=== PATIENT | male | born 1955 | race Caucasian/White ===

== ENCOUNTER → 2017-05-11 11:30 | Outpatient (CLI) | payer OTHER, SELFPAY ==
[2017-05-11 14:46] LABS: Albumin, Serum 4.4 g/dL (3.2-5.0); BUN 18 mg/dL (7-18); BUN/Creat Ratio 13.6 RATIO (10-20); Calcium,Total 9.2 mg/dL (8.5-10.1); Chloride 103 mmol/L (98-107); Creatinine, Serum 1.32 mg/dL (0.70-1.30); EST Glomerular Filtration Rate 59 mL/min (>60); Est Glom Filt Rate - Afr Amer 71 mL/min (>60); Glucose 105 mg/dL (70-110); Magnesium 2.3 mg/dL (1.6-2.6); Phosphorus 3.3 mg/dL (2.5-4.9); Potassium 4.7 mmol/L (3.5-5.1); Sodium Level 141 mmol/L (136-145)
== END ==
PROVIDERS: Family Provider Internal Medicine; PCP Internal Medicine; Visit Provider Internal Medicine Nephrology
DX: I10 Essential (primary) hypertension (principal)
CPT/HCPCS: 36415; 80069; 83735

== ENCOUNTER → 2017-05-12 11:05 | Outpatient (CLI) | payer OTHER, SELFPAY | PROVIDERS: Family Provider Internal Medicine; PCP Internal Medicine; Visit Provider Internal Medicine Nephrology | DX: I10 Essential (primary) hypertension (principal) | CPT/HCPCS: 36415 ==

== ENCOUNTER → 2017-05-29 15:25 | Outpatient (CLI) | payer OTHER, SELFPAY ==
[2017-05-29 17:44] LABS: Hematocrit 46.4 % (40-54); Hemoglobin 15.7 g/dl (13.0-16.5); Mean Corp Hgb Conc 33.8 g/gl (32-36); Mean Corpuscular Hgb 29.5 pg (27.0-32.0); Mean Corpuscular Volume 87.2 fL (80-94); Mean Platelet Vol. 11.8 fl (6.2-12.0); Platelet Count 201 K/mm3 (150-450); RBC Distribution Width CV 13.8 % (11.6-14.6); RBC Distribution Width SD 43.5 fl (35.1-43.9); Red Blood Count 5.32 M/mm3 (4.6-6.2); Scan Indicated on CBC? Y/N NO; White Blood Count 6.4 K/mm3 (4.4-11.0)
[2017-05-29 18:11] LABS: Albumin, Serum 4.3 g/dL (3.2-5.0); BUN 27 mg/dL (7-18); Chloride 103 mmol/L (98-107); EST Glomerular Filtration Rate 51 mL/min (>60); Est Glom Filt Rate - Afr Amer 61 mL/min (>60); Glucose 129 mg/dL (74-106); Magnesium 2.2 mg/dL (1.6-2.6); Phosphorus 3.7 mg/dL (2.5-4.9); Potassium 3.9 mmol/L (3.5-5.1); Sodium Level 140 mmol/L (136-145)
[2017-05-29 18:32] LABS: Microalbumin,Random Urine 53.5 mg/L (NO RANGE EST.); Microalbumin:Creatinine Ratio 22.2 mg/g CRE (<30 mg/g CRE)
== END ==
PROVIDERS: Family Provider Internal Medicine; PCP Internal Medicine; Visit Provider Internal Medicine Nephrology
DX: I10 Essential (primary) hypertension (principal)
CPT/HCPCS: 36415; 80069; 82043; 82570; 83735; 85027

== ENCOUNTER → 2017-06-01 10:50 | Outpatient (CLI) | payer OTHER, SELFPAY ==
--- NOTE | 2017-06-01 10:52 | US_ITS ---
US Kidney(s) complete (eg, kidneys T bladder) INDICATION: NEPHROLITHIASISHX OF RECENT HIGH BLOOD PRESSURE COMPARISON: None TECHNIQUE: Ultrasonographic grayscale and limited Doppler investigation of the retroperitoneum including kidneys and urinary bladder. FINDINGS: The right kidney measures 11.1 x 5.3 x 5.2 cm with a cortical thickness of 1.5 cm. There is no evidence of hydronephrosis or cyst. A 2 mm calculus is noted in the midpole region. The left kidney measures 11.6 x 5 x 5.4 cm with a cortical thickness of 1.3 cm. There is mild prominence of the left renal pelvis and multiple left renal calculi are seen measuring between 2 and 7 mm. The urinary bladder is unremarkable, contains 213 mL at the time of that scan, and 30 mL postvoid. The wall thickness measures 3 mm. Bilateral ureteral jets are visualized. The prostate gland appears heterogenous and enlarged, measuring 5.7 x 5.5 x 3.8 cm. US/Kidney and Bladder IMPRESSION: Bilateral nephrolithiasis. Left renal pelviectasis. Prostatomegaly. at 1731 Reported and signed by: Kristi Moya MD Electronically Signed: Kristi Moya MD at 16:29 EST Tel , Service support ,
== END ==
PROVIDERS: Family Provider Internal Medicine; PCP Internal Medicine; Visit Provider Internal Medicine Nephrology
DX: N20.0 Calculus of kidney (principal)
CPT/HCPCS: 76770

== ENCOUNTER → 2017-06-15 11:40 | Outpatient (CLI) | payer OTHER, SELFPAY ==
[2017-06-15 14:19] LABS: Albumin, Serum 4.3 g/dL (3.2-5.0); BUN 18 mg/dL (7-18); BUN/Creat Ratio 14.1 RATIO (10-20); Calcium,Total 9.2 mg/dL (8.5-10.1); Chloride 102 mmol/L (98-107); Creatinine, Serum 1.28 mg/dL (0.70-1.30); EST Glomerular Filtration Rate 61 mL/min (>60); Est Glom Filt Rate - Afr Amer 73 mL/min (>60); Free T3 2.9 pg/mL (2.18-3.98); Glucose 96 mg/dL (74-106); Magnesium 2.5 mg/dL (1.6-2.6); Potassium 4.4 mmol/L (3.5-5.1); Sodium Level 141 mmol/L (136-145); T4 Free Direct 0.96 ng/dL (0.76-1.46)
== END ==
PROVIDERS: Family Provider Internal Medicine; PCP Internal Medicine; Visit Provider Internal Medicine
DX: I10 Essential (primary) hypertension (principal); R94.6 Abnormal results of thyroid function studies
CPT/HCPCS: 36415; 80069; 83735; 84439; 84481

== ENCOUNTER 2017-08-25 21:27 | Emergency (ER) | payer OTHER, SELFPAY ==
[2017-08-25 21:28] VITALS: BP 155/89; PULSE 76; RESP 14; TEMP 36.5; O2SAT 94; BMI 29.7
--- NOTE | 2017-08-25 21:40 | RAD_ITS ---
STUDY: X-RAY CHEST REASON FOR EXAM: Male, 61 years old. Chest pain TECHNIQUE: Single frontal view COMPARISON: August 03, 2016 FINDINGS: The lungs are not fully expanded. There is no demonstrated pleural abnormality. Normal size heart. Normal mediastinum and silvina. Normal visualized pulmonary arteries. Normal visualized aortic arch and descending thoracic aorta. Normal visualized thoracic spine. Old fracture of the left fourth rib. There is no demonstrated abnormality of the visualized soft tissue structures of the upper abdomen. RAD/Chest 1 View (Portable) IMPRESSION: No acute pulmonary pathology of the chest. Electronically Signed: Red Rodriguez DO at 21:58 EDT Tel [phone], Service support ,
--- NOTE | 2017-08-25 21:40 | EKG12_ITS ---
Test Reason : CHEST PAIN Blood Pressure : / mmHG Vent. Rate : 068 BPM Atrial Rate : 068 BPM P-R Int : 194 ms QRS Dur : 124 ms QT Int : 412 ms P-R-T Axes : 034 -76 006 degrees QTc Int : 438 ms Normal sinus rhythm Left axis deviation Abnormal ECG Confirmed by PRERNA BRYAN, HUDSON ([id number]), newspaper or periodical editor NERISSA LOCKHART ([id number]) on 08/28/2017 2:04:22 PM Referred By: JAY Confirmed By:HUDSON GRAFF MD
--- NOTE | 2017-08-25 21:40 | CT_ITS ---
STUDY: CT ABDOMEN AND PELVIS WITHOUT CONTRAST REASON FOR EXAM: Male, 61 years old. Groin pain RADIATION DOSAGE (If Supplied By Facility): CTDIvol = ( 13.16 ) mGy, DLP = ( 776.28 ) mGycm TECHNIQUE: Transaxial images were obtained from the dome of the diaphragm to the symphysis pubis without oral contrast, and without intravenous contrast. Sagittal and coronal images were reconstructed. Individualized dose optimization techniques were used for this CT. COMPARISON: April 21, 2008. FINDINGS: The visualized lung bases are unremarkable. The visualized portions of the heart are within normal limits. Normal liver. Normal gallbladder and extrahepatic biliary system. Normal spleen. Normal pancreas. Normal bilateral adrenal glands. Normal right kidney. There are 2-3 nonobstructive stones up to 8 mm in the left kidney. Normal visualized stomach. Normal small intestine. Mild diverticulosis of the colon. The appendix is visualized and appears normal. Normal abdominal aorta. Normal inferior vena cava. Normal retroperitoneum. Normal urinary bladder. Fatty density at the inguinal canals. The prostate is 4.4 x 5.5 cm Normal abdominal wall. Mild degenerative vertebral changes. Grade 1 spondylolisthesis at L5-S1 with spondylolysis of L5. CT/Abdomen/Pelvis without Cont IMPRESSION: Nonobstructive left renal stones. Fatty density at the inguinal canals. Electronically Signed: Red Rodriguez DO at 22:18 EDT Tel [phone], Service support ,
[2017-08-25 21:46] VITALS: O2SAT 98
--- NOTE | 2017-08-25 21:49 | ED.VISSUMM ---
- ER Visit Summary Date of Service: 08/25/17 Chief Complaint: Chest pain History of Present Illness: The patient is a 61 M patient has had intermittent chest pain for weeks. Retrosternal and feels like it hurts. His pain has been constant today for 6 or 8 hours. He is taking Tums and reflux medication and it is not helping. It is associated with some shortness of breath. He denies any history of coronary disease. He has had a history of a flutter and had an ablation. He subsequently developed intermittent atrial fibrillation. He is on flecainide and Xarelto. He had a cardiac catheterization just over a year ago that was unremarkable except for a kink in the RCA. He has a family history of coronary disease. His father had an [place] at 65. Patient was also complaining of left flank pain and lower abdominal pain. He said he has a history of kidney stones and was concerned that he may be passing a stone. Physical Examination: Afebrile and vital signs unremarkable. Heart regular. Lungs clear. Abdomen tender in the left lower abdomen. No guarding or rebound. Extremities unremarkable. No edema. Good pulses. Soft and supple. Test Results: EKG showed sinus rhythm at a rate of 68. Laboratory studies, chest x-ray, urinalysis, and CT flank are pending. Emergency Department Course and Treatment: He was treated with aspirin while awaiting results. He was placed on a monitor. CBC unremarkable. BUN 22 and creatinine 1.31, stable. Urinalysis unremarkable. Troponin normal. Chest x-ray showed no acute abnormalities. CT flank showed nonobstructive left renal stones. Nothing to explain his flank pain. Patient had a cardiac catheterization just over a year ago. He does have some family history of coronary disease. His symptoms are atypical and may be related to acid reflux. I advised him that I cannot rule out a cardiac cause to his chest pain. The patient would like to be discharged and he would like to follow-up with Dr. Rivero. I attempted to call Dr. Rivero but he was not information technology officer. The patient said he would call tomorrow. He said that he understands we have not completely ruled out cardiac causes. He does not want to be admitted. On reevaluation, the patient looks objectively comfortable. His heart is in sinus rhythm. Vitals are normal. No new or changing symptoms. He will be discharged to follow-up as an outpatient. He should return at any time if he has new or worsening symptoms. Treatment Plan: As above Disposition: Discharged Impression: 1. Chest pain 2. Left flank pain This note was generated with [employer] dictation software. It may contain incorrect words, spelling, and punctuation that were not noted in review of the chart prior to signing ED Disposition - Plan for ED Patient: Chief Complaint: Chest Pain Referrals: Ameena Renee DO [Primary Care Provider] -
--- NOTE | 2017-08-25 21:52 | ED.DCSUM_ITS ---
- ER Visit Summary Date of Service: 08/25/17 Chief Complaint: Chest pain History of Present Illness: The patient is a 61 M patient has had intermittent chest pain for weeks. Retrosternal and feels like it hurts. His pain has been constant today for 6 or 8 hours. He is taking Tums and reflux medication and it is not helping. It is associated with some shortness of breath. He denies any history of coronary disease. He has had a history of a flutter and had an ablation. He subsequently developed intermittent atrial fibrillation. He is on flecainide and Xarelto. He had a cardiac catheterization just over a year ago that was unremarkable except for a kink in the RCA. He has a family history of coronary disease. His father had an [place] at 65. Patient was also complaining of left flank pain and lower abdominal pain. He said he has a history of kidney stones and was concerned that he may be passing a stone. Physical Examination: Afebrile and vital signs unremarkable. Heart regular. Lungs clear. Abdomen tender in the left lower abdomen. No guarding or rebound. Extremities unremarkable. No edema. Good pulses. Soft and supple. Test Results: EKG showed sinus rhythm at a rate of 68. Laboratory studies, chest x-ray, urinalysis, and CT flank are pending. Emergency Department Course and Treatment: He was treated with aspirin while awaiting results. He was placed on a monitor. CBC unremarkable. BUN 22 and creatinine 1.31, stable. Urinalysis unremarkable. Troponin normal. Chest x-ray showed no acute abnormalities. CT flank showed nonobstructive left renal stones. Nothing to explain his flank pain. Patient had a cardiac catheterization just over a year ago. He does have some family history of coronary disease. His symptoms are atypical and may be related to acid reflux. I advised him that I cannot rule out a cardiac cause to his chest pain. The patient would like to be discharged and he would like to follow-up with Dr. Rivero. I attempted to call Dr. Rivero but he was not technology applications engineer. The patient said he would call tomorrow. He said that he understands we have not completely ruled out cardiac causes. He does not want to be admitted. On reevaluation, the patient looks objectively comfortable. His heart is in sinus rhythm. Vitals are normal. No new or changing symptoms. He will be discharged to follow-up as an outpatient. He should return at any time if he has new or worsening symptoms. Treatment Plan: As above Disposition: Discharged Impression: 1. Chest pain 2. Left flank pain This note was generated with [employer] dictation software. It may contain incorrect words, spelling, and punctuation that were not noted in review of the chart prior to signing ED Disposition - Plan for ED Patient: Chief Complaint: Chest Pain Referrals: Ameena Renee DO [Primary Care Provider] -
[2017-08-25] MEDS: Aspirin 81 MG TAB.CHEW 324 MG PO (21:56)
[2017-08-25 22:04] LABS: Absolute Lymphocyte Count 0.71 X10^3/ul (0.83-4.51); Basophil# 0.02 X10^3/uL; Basophil% 0.4 % (0-1); Eosinophil# 0.04 X10^3/uL; Eosinophils% 0.8 % (0-5); Hematocrit 44.7 % (40-54); Hemoglobin 15.6 g/dl (13.0-16.5); Lymphocyte # 0.71 X10^3/ul (4.0); Lymphocyte % 13.4 % (19-41); Mean Corp Hgb Conc 34.9 g/gl (32-36); Mean Corpuscular Hgb 29.9 pg (27.0-32.0); Mean Corpuscular Volume 85.6 fL (80-94); Mean Platelet Vol. 11.9 fl (6.2-12.0); Monocyte# 0.55 X10^3/uL; Monocyte% 10.4 % (0-10); Neutrophil # 3.95 X10^3/uL (2.7-7.7); Neutrophil % 74.8 % (47-70); Platelet Count 152 K/mm3 (150-450); RBC Distribution Width CV 13.2 % (11.6-14.6); RBC Distribution Width SD 41.1 fl (35.1-43.9); Red Blood Count 5.22 M/mm3 (4.6-6.2); White Blood Count 5.3 K/mm3 (4.4-11.0)
[2017-08-25 22:06] LABS: POSITIVE COUNT NO; POSITIVE DIFFERENTIAL NO; POSITIVE MORPHOLOGY NO
[2017-08-25 22:16] LABS: Anion Gap 8 (5-15); BUN 22 mg/dL (7-18); BUN/Creat Ratio 16.8 RATIO (10-20); Calcium,Total 9.1 mg/dL (8.5-10.1); Chloride 105 mmol/L (98-107); Creatinine, Serum 1.31 mg/dL (0.70-1.30); EST Glomerular Filtration Rate 59 mL/min (>60); Est Glom Filt Rate - Afr Amer 71 mL/min (>60); Estimated Creatinine Clearance 66.92 ml/min; Glucose 101 mg/dL (74-106); Potassium 3.9 mmol/L (3.5-5.1); Sodium Level 139 mmol/L (136-145)
[2017-08-25 22:21] LABS: Bacteria 0 SEEN /hpf (None Seen); Mucous, Urine 0 SEEN /hpf (<or=2+); Red Blood Cells-Urine 0 SEEN /hpf (0-5); White Blood Cells 0 SEEN /hpf (0-5)
[2017-08-25 22:27] VITALS: BP 118/89; PULSE 59; RESP 17; O2SAT 93
[2017-08-25 22:31] LABS: Color, Urine Yellow (Yellow); Glucose, Dipstick Normal (Normal); Ketone-Dipstick Negative (Negative); Leukocyte Esterase-Dipstick Negative /ul (Negative); Nitrite-Dipstick Negative (Negative); Occult Blood-Urine Negative /ul (Negative); Protein-Dipstick Negative (Negative); Specific Gravity, Urine 1.015 (1.002-1.030); Urine Bilirubin Dipstick Negative (Negative); Urine Clarity Sl. Cloudy (Clear); Urine Urobilinogen Normal (Normal)
[2017-08-25 22:45] LABS: Squamous Epithelial Cells - UA 0-5 SEEN /hpf (0-5)
--- NOTE | 2017-08-25 23:23 | ED.DEP ---
ED Disposition - Plan for ED Patient: Chief Complaint: Chest Pain Instructions: ED Chest Pain Atypical Unkn Cause Referrals: Ameena Renee DO [Primary Care Provider] - Sathish Rivero MD [STAFF PHYSICIAN] -
[2017-08-25 23:47] VITALS: BP 117/80; PULSE 59; RESP 16; O2SAT 94
== END 2017-08-25 23:48 | disposition home or self-care (01) ==
LOC: ED 21:44
PROVIDERS: Emergency Provider Emergency Medicine; Family Provider Internal Medicine; PCP Internal Medicine
DX: R07.89 Other chest pain (principal); I48.91 Unspecified atrial fibrillation; R06.02 Shortness of breath; Z87.442 Personal history of urinary calculi; Z82.49 Family history of ischemic heart disease and other diseases of the circulatory system; K21.9 Gastro-esophageal reflux disease without esophagitis; R10.9 Unspecified abdominal pain; Z79.899 Other long term (current) drug therapy; Z79.01 Long term (current) use of anticoagulants
CPT/HCPCS: 71045; 74176; 80048; 81001; 84484; 85025; 93005; 99284; A4216

== ENCOUNTER → 2017-09-04 11:23 | Outpatient (CLI) | payer OTHER, SELFPAY ==
[2017-09-04 12:36] LABS: Absolute Lymphocyte Count 0.95 X10^3/ul (0.83-4.51); Absolute Neutrophil Count 4.2 X10^3/uL (2.0-7.7); Basophil# 0.03 X10^3/uL; Basophil% 0.5 % (0-1); Eosinophil# 0.09 X10^3/uL; Eosinophils% 1.6 % (0-5); Hematocrit 44.2 % (40-54); Hemoglobin 14.7 g/dl (13.0-16.5); Lymphocyte # 0.95 X10^3/ul (4.0); Lymphocyte % 16.6 % (19-41); Mean Corp Hgb Conc 33.3 g/gl (32-36); Mean Corpuscular Hgb 28.7 pg (27.0-32.0); Mean Corpuscular Volume 86.2 fL (80-94); Mean Platelet Vol. 11.6 fl (6.2-12.0); Monocyte% 8.7 % (0-10); Neutrophil # 4.16 X10^3/uL (2.7-7.7); Neutrophil % 72.4 % (47-70); Platelet Count 206 K/mm3 (150-450); RBC Distribution Width CV 13.4 % (11.6-14.6); RBC Distribution Width SD 41.9 fl (35.1-43.9); Red Blood Count 5.13 M/mm3 (4.6-6.2); White Blood Count 5.7 K/mm3 (4.4-11.0)
[2017-09-04 12:41] LABS: POSITIVE COUNT NO; POSITIVE DIFFERENTIAL NO; POSITIVE MORPHOLOGY NO
[2017-09-04 12:57] LABS: PTHIN 52.6 pg/mL (18.4-80.1)
[2017-09-04 13:00] LABS: Albumin, Serum 4.1 g/dL (3.2-5.0); BUN 20 mg/dL (7-18); BUN/Creat Ratio 17.2 RATIO (10-20); Calcium,Total 9.2 mg/dL (8.5-10.1); Chloride 103 mmol/L (98-107); Creatinine, Serum 1.16 mg/dL (0.70-1.30); EST Glomerular Filtration Rate 68 mL/min (>60); Est Glom Filt Rate - Afr Amer 82 mL/min (>60); Glucose 93 mg/dL (74-106); Magnesium 2.4 mg/dL (1.6-2.6); Phosphorus 3.2 mg/dL (2.5-4.9); Potassium 4.1 mmol/L (3.5-5.1); Sodium Level 139 mmol/L (136-145)
[2017-09-04 13:03] LABS: Protein, Urine (Random) < 6.0 mg/dL (<11.9)
[2017-09-08 11:20] LABS: Vitamin D 1,25-Dihydroxy 26.7 pg/mL (19.9-79.3)
== END ==
PROVIDERS: Family Provider Internal Medicine; PCP Internal Medicine; Visit Provider Internal Medicine Nephrology
DX: I12.9 Hypertensive chronic kidney disease with stage 1 through stage 4 chronic kidney disease, or unspecified chronic kidney disease (principal); N18.3 Chronic kidney disease, stage 3 (moderate)
CPT/HCPCS: 36415; 80069; 82570; 82652; 83735; 83970; 84156; 85025

== ENCOUNTER → 2017-09-08 09:50 | Outpatient (CLI) | payer OTHER, SELFPAY ==
--- NOTE | 2017-09-08 09:52 | NM_ITS ---
CLINICAL: 61-year-old male with reported history of abdominal pain. RADIONUCLIDE HEPATOBILIARY SCINTIGRAPHY COMPARISON: Previous CCK hepatobiliary scintigraphy study report 09/07/2009 FINDINGS: Following the intravenous administration of 5.5 mCi of 99m Tc Mebrofenin, hepatobiliary images reveal: 1. Relatively prompt and homogeneous radiopharmaceutical concentration is noted by a normal sized liver. No parenchymal defects are identified. 2. Gallbladder activity is identified at 15 minutes post radiopharmaceutical administration. 3. Small intestinal tract is not visualized during 60 minutes of pre-CCK sequential imaging. Small bowel activity is identified following the administration of cholecystokinin. 4. Washout of the radiopharmaceutical by the hepatic parenchyma appears qualitatively normal. Cholecystokinin (0.02 ug/kg) was administered intravenously over a 30-minute period. The post CCK gallbladder ejection fraction calculated at 20 minutes following Cholecystokinin administration was noted to be 92.0 % (normal greater than 35%). There is scintigraphic evidence of post CCK transient duodenal gastric reflux. WI/Hepatobilliary Img w/Pharm Int IMPRESSION: 1. A gallbladder ejection fraction calculated to be greater than 35% following the administration of Cholecystokinin makes the probability of functional hepatobiliary disease (gallbladder and/or sphincter of Oddi dyskinesia) and/or organic hepatobiliary disease (chronic acalculous cholecystitis and/or cystic duct syndrome) to be low. (Dayanna Michelle et al, Journal of Nuclear Medicine 32:1695, 1990). 2. There is scintigraphic evidence of post CCK transient duodenal-gastric reflux. (Rusty et al, Nucl Med Radha Colleen Press pg. 35, 1980). Electronically Signed: Luis Munson DO at 22:48 EDT Tel , Service support ,
== END ==
PROVIDERS: Family Provider Internal Medicine; PCP Internal Medicine; Visit Provider Internal Medicine
DX: R07.89 Other chest pain (principal)
CPT/HCPCS: 78227; A9537; J2805

== ENCOUNTER → 2018-04-16 10:48 | Outpatient (CLI) | payer OTHER, SELFPAY ==
[2018-04-16 12:49] LABS: Albumin, Serum 4.4 g/dL (3.2-5.0); BUN 25 mg/dL (7-18); BUN/Creat Ratio 19.4 RATIO (10-20); Calcium,Total 9.4 mg/dL (8.5-10.1); Chloride 102 mmol/L (98-107); Creatinine, Serum 1.29 mg/dL (0.70-1.30); EST Glomerular Filtration Rate 60 mL/min (>60); Est Glom Filt Rate - Afr Amer 73 mL/min (>60); Glucose 98 mg/dL (74-106); Magnesium 2.2 mg/dL (1.6-2.6); Phosphorus 3.5 mg/dL (2.5-4.9); Potassium 4.2 mmol/L (3.5-5.1); Sodium Level 139 mmol/L (136-145)
== END ==
PROVIDERS: Family Provider Internal Medicine; PCP Internal Medicine; Referring Provider Internal Medicine Nephrology; Visit Provider Internal Medicine Nephrology
DX: I10 Essential (primary) hypertension (principal)
CPT/HCPCS: 36415; 80069; 83735

== ENCOUNTER → 2018-06-28 13:22 | Outpatient (CLI) | payer OTHER, SELFPAY ==
--- NOTE | 2018-06-28 13:28 | RAD_ITS ---
STUDY: X-RAY - CERVICAL SPINE REASON FOR EXAM: Male, 62 years old. Headaches x 1 year. TECHNIQUE: 4 view(s) of the cervical spine were obtained. COMPARISON: None FINDINGS: There are degenerative changes of the anterior atlantoaxial articulation. Normal odontoid process. Normal cervical lordosis. Normal vertebral bodies and endplates. There is mild narrowing of the C3-4 intervertebral disc space, otherwise normal disc space heights. There are multilevel degenerative changes of the cervical facet articulations. The soft tissue structures are unremarkable. There is no demonstrated osseous destructive process or acute fracture of the cervical spine. RAD/Cerv Spine 2 or 3 Views IMPRESSION: Multilevel degenerative changes of the cervical facet articulations as well as mild degenerative disc space narrowing at C3-4. Electronically Signed: Live Duran MD at 19:23 EDT , Service support ,
== END ==
PROVIDERS: Family Provider Internal Medicine; PCP Internal Medicine; Visit Provider Internal Medicine
DX: R51 Headache (principal)
CPT/HCPCS: 72040

== ENCOUNTER → 2018-07-09 10:04 | Outpatient (CLI) | payer OTHER, SELFPAY ==
--- NOTE | 2018-07-09 10:45 | MRI_ITS ---
STUDY: MRI BRAIN WITHOUT CONTRAST REASON FOR EXAM: Male, 62 years old. Acute intractable headache. TECHNIQUE: Standardized multiplanar fat and water weighted pulse sequences were obtained. COMPARISON: None. FINDINGS: Normal size of the ventricles and extra-axial spaces for the patient's age. Normal white matter tracts of the supratentorial brain. There is no evidence for recent intracranial ischemia or other cause of cytotoxic edema on diffusion weighted imaging (DWI). Normal T2* images of the brain without demonstrated susceptibility artifact. There is no demonstrated hemosiderin stain. Normal bilateral basal ganglia. Normal thalami. There is no extra-axial fluid accumulation. Normal flow voids within the major intracranial circulation suggesting patency by spin echo criteria. Normal sella turcica, pituitary gland, infundibular stalk, optic chiasm and hypothalamus. Normal tectal plate and pineal gland. Normal midbrain, aviva and medulla. Normal cerebellum. Normal basal cisterns. Normal bilateral temporal bones. Normal bilateral internal auditory canals. No demonstrated orbital abnormality, within the constraints of a routine brain study. Normal visualized paranasal sinuses. There is a right posterior parietal oval calvarial lesion T2 dark measuring 2.2 x 1.6 cm with overall benign appearance with similar appearance compared to 2017. Normal visualized soft tissue structures. Normal visualized upper cervical spine. MRI/Brain without Contrast IMPRESSION: No evidence of acute intracranial bleed, mass or ischemia. Electronically Signed: Aries Cool DO at 16:52 EDT , Service support ,
== END ==
PROVIDERS: Family Provider Internal Medicine; PCP Internal Medicine; Referring Provider Internal Medicine; Visit Provider Internal Medicine
DX: R51 Headache (principal)
CPT/HCPCS: 70551

== ENCOUNTER → 2018-11-12 12:44 | Outpatient (CLI) | payer OTHER, SELFPAY ==
[2018-11-12 13:47] LABS: Hematocrit 45.6 % (40-54); Mean Corp Hgb Conc 32.9 g/dL (32-36); Mean Corpuscular Volume 88.2 fL (80-94); Mean Platelet Vol. 11.8 fl (6.2-12.0); Platelet Count 171 K/mm3 (150-450); RBC Distribution Width CV 13.6 % (11.6-14.6); Red Blood Count 5.17 M/mm3 (4.6-6.2); White Blood Count 6.7 K/mm3 (4.4-11.0)
[2018-11-12 14:03] LABS: BUN 31 mg/dL (7-18); Creatinine, Serum 1.61 mg/dL (0.70-1.30); EST Glomerular Filtration Rate 46 mL/min (>60); Glucose 96 mg/dL (74-106)
[2018-11-12 14:04] LABS: Albumin, Serum 4.2 g/dL (3.2-5.0); BUN/Creat Ratio 19.3 RATIO (10-20); Calcium,Total 9.3 mg/dL (8.5-10.1); Chloride 106 mmol/L (98-107); Est Glom Filt Rate - Afr Amer 56 mL/min (>60); Magnesium 2.2 mg/dL (1.6-2.6); Sodium Level 140 mmol/L (136-145)
[2018-11-12 14:10] LABS: Microalbumin,Random Urine 7.4 mg/L (NO RANGE EST.); Microalbumin:Creatinine Ratio 3.7 mg/g CRE (<30 mg/g CRE)
[2018-11-12 14:12] LABS: Vitamin D,25 Hydroxy 26.3 ng/mL (29.95-100.01)
== END ==
PROVIDERS: Family Provider Internal Medicine; PCP Internal Medicine; Referring Provider Internal Medicine Nephrology; Visit Provider Internal Medicine Nephrology
DX: I12.9 Hypertensive chronic kidney disease with stage 1 through stage 4 chronic kidney disease, or unspecified chronic kidney disease (principal); N18.3 Chronic kidney disease, stage 3 (moderate)
CPT/HCPCS: 36415; 80069; 82043; 82306; 82570; 83735; 85027

== ENCOUNTER 2019-04-04 11:17 | Emergency (ER) | payer OTHER, SELFPAY ==
[2019-04-04 11:18] VITALS: BP 154/85; PULSE 59; RESP 18; TEMP 36.4; O2SAT 98; BMI 28.6
--- NOTE | 2019-04-04 11:59 | RAD_ITS ---
STUDY: X-RAY - LUMBAR SPINE REASON FOR EXAM: Male, 63 years old. Low back pain radiating into pelvis and hips 2 weeks. TECHNIQUE: 3 view(s) of the lumbar spine were obtained. COMPARISON: None FINDINGS: Mild generalized osteopenia. Normal lumbar lordosis. There is no substantial scoliosis. Bilateral pars defects at L5-S1 with a grade 1 spondylolisthesis of L5 on S1. Normal vertebral bodies and endplates. Intervertebral disc space narrowing at L5-S1 with vacuum phenomenon. Mild intervertebral disc space narrowing with osteophyte formation in the lower thoracic and upper lumbar spine. Diffuse facet sclerosis. The soft tissue structures are unremarkable. RAD/Lumbar Spine 2 or 3 Views IMPRESSION: Osteopenia with lumbar spondylosis as described, most marked at L5-S1, with a spondylolysis at this level and a grade 1 spondylolisthesis at this level. Electronically Signed: Te Simmons MD at 12:21 EST , Service support ,
--- NOTE | 2019-04-04 11:59 | ED.VISSUMM ---
- ER Visit Summary Date of Service: 04/04/19 Chief Complaint: Low back pain History of Present Illness: The patient is a 63 M past medical history of hypertension kidney stones. Intermittent A. fib with cardiac ablation. Patient states he fell down several steps landing on his knees about a month ago. He was fine at that time. The last 2 weeks he has developed low back pain. Times radiating to both sides of his buttocks. Denies any recent falls or trauma. No fever. No prior back history. No back surgery. Denies any bowel or bladder incontinence. Denies any leg weakness or numbness. Not specifically associated with exertion. Worse with standing or movement. Physical Examination: Older male no acute distress vital signs stable afebrile. H EENT exam unremarkable. Neck nontender. Lungs clear to auscultation. Heart regular rhythm rate about 60 no murmur. S1 nontender. Abdomen soft nontender. Normal bowel sounds no peritoneal signs. No pulsatile mass. Patient moving all 4 extremities. Neurovascular intact. Normal medial thigh sensation. Normal dorsi plantar flexion. Negative straight leg raise bilaterally. Normal range of motion and strength and sensation both upper and lower extremities. Back mild tenderness of the LS spine diffusely. No redness or warmth. No bruising or signs of trauma. Neurologically is awake and alert with no focal motor or sensory deficits. Test Results: LS spine x-rays read by myself L5-S1 spondylosis. With osteopenia and joint space narrowing. No acute fracture. Read both myself and the radiologist. I did go over the films with the patient and his family. Emergency Department Course and Treatment: Patient has negative straight leg raise. Both lower extremities neurovascular intact. There is no signs of cauda equina. Plain x-rays will be obtained. Treatment Plan: Motrin and Tylenol for pain. Follow-up with primary care physician for MRI of his low back. Disposition: Discharge Impression: Low back pain Spondylosis of L5-S1 This note was generated with [employer] dictation software. It may contain incorrect words, spelling, and punctuation that were not noted in review of the chart prior to signing ED Disposition - Plan for ED Patient: Referrals: Ameena Renee, [Primary Care Provider] -
--- NOTE | 2019-04-04 13:17 | ED.DEP ---
ED Disposition - Plan for ED Patient: Disposition: Home or Assisted Living Instructions: BACK PAIN (Acute or Chronic) Referrals: Ameena Renee, [Primary Care Provider] - As soon as possible Additional Instructions: Follow-up with your doctor within the next week. You will need an MRI of your low back. Tylenol and Motrin for pain.
== END 2019-04-04 13:26 | disposition home or self-care (01) ==
PROVIDERS: Emergency Provider Emergency Medicine; Family Provider Internal Medicine; PCP Internal Medicine
DX: M47.817 Spondylosis without myelopathy or radiculopathy, lumbosacral region (principal); I10 Essential (primary) hypertension; I48.91 Unspecified atrial fibrillation; Z87.442 Personal history of urinary calculi; Z79.02 Long term (current) use of antithrombotics/antiplatelets; Z79.899 Other long term (current) drug therapy
CPT/HCPCS: 72100; 99282

== ENCOUNTER → 2019-04-15 15:00 | Outpatient (CLI) | payer OTHER, SELFPAY ==
[2019-04-04 11:18] VITALS: BMI 28.6
[2019-04-15 17:42] LABS: Hematocrit 47.7 % (40-54); Hemoglobin 15.7 g/dL (13.0-16.5); Mean Corp Hgb Conc 32.9 g/dL (32-36); Mean Corpuscular Hgb 28.8 pg (27.0-32.0); Mean Corpuscular Volume 87.4 fL (80-94); Platelet Count 176 K/mm3 (150-450); RBC Distribution Width CV 13.6 % (11.6-14.6); Red Blood Count 5.46 M/mm3 (4.6-6.2); White Blood Count 7.3 K/mm3 (4.4-11.0)
[2019-04-15 18:08] LABS: Vitamin D,25 Hydroxy 24.7 ng/mL (29.95-100.01)
[2019-04-15 18:20] LABS: Albumin, Serum 4.5 g/dL (3.2-5.0); BUN 20 mg/dL (7-18); BUN/Creat Ratio 15.4 RATIO (10-20); Calcium,Total 9.6 mg/dL (8.5-10.1); Chloride 102 mmol/L (98-107); EST Glomerular Filtration Rate 59 mL/min (>60); Est Glom Filt Rate - Afr Amer 72 mL/min (>60); Glucose 97 mg/dL (74-106); Magnesium 2.2 mg/dL (1.6-2.6); Phosphorus 4.1 mg/dL (2.5-4.9); Potassium 4.6 mmol/L (3.5-5.1); Sodium Level 137 mmol/L (136-145)
[2019-04-15 18:28] LABS: Microalbumin,Random Urine 9.4 mg/L (NO RANGE EST.); Microalbumin:Creatinine Ratio 8.9 mg/g CRE (<30 mg/g CRE)
[2019-04-18 09:08] LABS: PTHIN 25.8 pg/mL (18.4-80.1)
== END ==
PROVIDERS: Family Provider Internal Medicine; PCP Internal Medicine; Referring Provider Internal Medicine Nephrology; Visit Provider Internal Medicine Nephrology
DX: N18.3 Chronic kidney disease, stage 3 (moderate) (principal); E55.9 Vitamin D deficiency, unspecified
CPT/HCPCS: 36415; 80069; 82043; 82306; 82570; 83735; 83970; 85027

== ENCOUNTER → 2019-04-30 08:43 | Outpatient (CLI) | payer OTHER, SELFPAY ==
[2019-04-04 11:18] VITALS: BMI 28.6
--- NOTE | 2019-04-30 09:00 | MRI_ITS ---
STUDY: MRI LUMBAR SPINE WITHOUT CONTRAST REASON FOR EXAM: Male, 63 years old patient with low back pain with radicular symptoms to bilateral legs, buttock and sacrum for six to eight months. TECHNIQUE: Standardized fat and water weighted pulse sequences were obtained in the sagittal and axial planes. COMPARISON: None FINDINGS: T12-L1: There are small Schmorl''s nodes at the endplates. Normal disc height, signal and morphology. Normal bilateral facet joints. Normal central canal and bilateral lateral recesses. Normal bilateral intervertebral neural foramina. Normal lumbar lordosis. There is no substantial scoliosis. Normal conus medullaris that terminates at the L1 level. L1-2: Normal endplates. Normal disc height, signal and morphology. Normal bilateral facet joints. Normal central canal and bilateral lateral recesses. Normal bilateral intervertebral neural foramina. L2-3: There is mild annular disk bulge and osteophyte complex. There is mild degenerative arthropathy of the facet joints. Bilateral neuroforamina are narrowed without MR evidence for nerve impingement. There is no significant acquired central canal stenosis. L3-4: There is mild annular disk bulge and osteophyte complex. There is mild degenerative arthropathy of the facet joints. Bilateral neuroforamina are narrowed without MR evidence for nerve impingement. There is mild central canal stenosis. L4-5: There is a nodular extradural process that is located at the left side of the thecal sac measuring approximately 1.5 x 1.2 x 1.9 cm in size. This is bright on the T2-weighted images and is almost isointense to CSF on the T1-weighted images. This causes severe compression of the thecal sac at this level with probable impingement of the cauda equina. Neural foramina are severely narrowed at this level with potential impingement of the L4 nerve roots at the neural foramina. Differential considerations for this extradural nodule include sequestrated disk fragment versus benign vascular lesions or metastasis. L5-S1: There is uncovering of this disc related to grade 1 anterolisthesis. This is secondary to spondylolysis of L5. There is narrowing of the L5-S1 disc. There is severe neural foraminal narrowing with probably impingement of L5 nerve roots of the neural foramina. There is moderate degenerative arthropathy of the facet joints at this level. There is no central canal stenosis. Normal visualized sacral ala. Normal visualized paraspinous soft tissue structures. MRI/Spine Lumbar (Routine) IMPRESSION: 1. Multilevel degenerative disc disease and degenerative arthropathy of the lumbar spine with neural foraminal narrowing, acquired canal stenosis and neural foraminal narrowing as described. 2. Grade 1 spondylolisthesis at L5-S1 secondary to spondylolysis of L5. 3. 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 Differential considerations include sequestered disk fragment, benign vascular tumors versus metastasis. Electronically Signed: Marilia Naranjo MD at 10:27 EST , Service support ,
== END ==
PROVIDERS: Family Provider Internal Medicine; PCP Internal Medicine; Referring Provider Internal Medicine; Visit Provider Internal Medicine
DX: M54.16 Radiculopathy, lumbar region (principal)
CPT/HCPCS: 72148

== ENCOUNTER 2019-05-03 15:14 | Emergency (ER) | payer OTHER, SELFPAY ==
[2019-05-03 15:16] VITALS: BP 133/81; PULSE 66; RESP 16; TEMP 37.1; O2SAT 95; BMI 28.8
[2019-05-03 15:30] VITALS: BP 142/96; PULSE 71; RESP 16; O2SAT 98
--- NOTE | 2019-05-03 15:40 | ED.VISSUMM ---
- ER Visit Summary Date of Service: 05/03/19 Chief Complaint: Low back pain History of Present Illness: The patient is a 63 M history of hypertension, A. fib on Xarelto and degenerative disc disease. Patient had back pain for 2 months. Is progressively getting worse. He has no bowel or bladder incontinence or retention. No weakness or numbness of his upper or lower extremities that is new. No fever. No chills. The MRI on Thursday that he had done showed a possible cauda equina that was called to the nurse practitioner in his physician's office today who sent in the emergency department. He denies any cauda equina symptoms. The pain is gotten worse the last 2 months but has had no weakness, numbness or incontinence. Physical Examination: Older male no acute distress vital signs are stable afebrile. HEENT exam unremarkable. Neck nontender no lymphadenopathy. Lungs clear to auscultation bilaterally. Heart regular rhythm no murmur. Abdomen is soft and nontender normal bowel sounds no peritoneal signs. Patient is moving all 4 extremities. He has normal 5-5 motor strength. He has normal dorsi and plantar flexion 5 out of 5 in both lower extremities. He has normal straight leg raise bilaterally. He has no saddle anesthesia. He has no weakness. He has chronic right lateral thigh decreased sensation is been going on for years. That is not new. Is not changed. Back exam nontender. No bruising. No redness or warmth. No specific reproducible tenderness. He has normal rectal sensation and tone. Equal and symmetrical knee jerk and ankle jerk reflexes. His neurologic exam is unremarkable. Test Results: None. I did review his recent MRI from Thursday. Emergency Department Course and Treatment: Patient does not need emergent spine surgery but he does need to be evaluated for this extradural lesion at L4-5 that may be causing compression of the cord. He is showing no signs of cauda equina. I spoke to Dr. Roman Pfeiffer on-call for [facility]. He will leave a message for the spine service and the patient will call tomorrow to be set up for a visit. Hopefully the next 1 to 2 days. He knows return immediately if he has worsening symptoms. Treatment Plan: Tylenol for pain. Disposition: discharge Impression: Acute on chronic low back pain Since MRI revealing an L4-5 extradural lesion causing compression of the thecal sac This note was generated with [employer] dictation software. It may contain incorrect words, spelling, and punctuation that were not noted in review of the chart prior to signing ED Disposition - Plan for ED Patient: Referrals: Ameena Renee DO [Primary Care Provider] -
--- NOTE | 2019-05-03 17:28 | ED.DEP ---
ED Disposition - Plan for ED Patient: Disposition: Home or Assisted Living Instructions: BACK PAIN (Acute or Chronic) Referrals: Luis Hudson MD [NON-STAFF] - As soon as possible Additional Instructions: Tylenol for pain. Call and follow-up with Dr. Luis Hudson of [facility] orthopedic spine first thing tomorrow morning. You need to get into be evaluated tomorrow and no later than . I did speak to the on-call physician for the [facility] that is Dr. Roman Pfeiffer and he will try to refer the message so that the spine physicians can get you in. Make sure you take a copy of your MRI and the reading with you. Return if worsening pain, bowel or bladder incontinence or weakness to your lower extremities.
== END 2019-05-03 17:38 | disposition home or self-care (01) ==
PROVIDERS: Emergency Provider Emergency Medicine; PCP Internal Medicine
DX: M54.5 Low back pain (principal); G95.29 Other cord compression; G89.29 Other chronic pain; I48.91 Unspecified atrial fibrillation; I10 Essential (primary) hypertension; Z79.01 Long term (current) use of anticoagulants; Z79.899 Other long term (current) drug therapy
CPT/HCPCS: 99282

== ENCOUNTER 2019-12-11 19:58 | Emergency (ER) | payer OTHER, SELFPAY ==
[2019-12-11 19:59] VITALS: BP 157/84; PULSE 69; RESP 17; TEMP 36.3; O2SAT 98; BMI 29.1
--- NOTE | 2019-12-11 20:54 | ED.DCSUM_ITS ---
History of Present Illness Chief Complaint: Ear Problem Informant: Patient Onset: Weeks Context: Gradual Onset Timing: Intermittent Narrative: Patient is a 64-year-old male with history of atrial fibrillation status post ablation on flecainide, hypertension and CKD presenting with a couple weeks of intermittent but worsening right ear pain. He states it feels like an ache. He denies any fever, drainage or ringing in his ears. He denies any change in his hearing. He notes he does have some issues with chronic sinus problems and postnasal drip. He states a couple days ago he had an episode where he had paresthesias and almost a burning sensation around his ear and into his scalp on the right side. That resolved however after about 24 hours. Patient states the pain is worse when he lays on his right side. Denies any other complaints at this time. Past Medical History - Allergies and Home Meds Allergies/Adverse Reactions: Allergies No Known Allergies Allergy (Verified 12/11/19 20:02) Primary Care Physician: Ameena Renee DO [Primary Care Provider] - Past Medical History: - - Atrial flutter, hypertension, hyperlipidemia, GERD, hypothyroid Surgical History: - - knee surgery Lives: Spouse/ Significant Other Smoking Status: Never smoker - Family History Paternal Family History: Reports: Heart Disease, - - min in in father in 65 Maternal Family History: Reports: No pertinent history Review of Systems General: Denies: Chills, Fever, Sweats Eyes: Denies: Visual changes - bilaterally, Diplopia ENT: Reports: Right ear pain, Rhinorrhea - Chronic, Sore throat - Chronic postnasal drip Cardiovascular: Denies: Chest pain, Palpitations Respiratory: Reports: Cough - Chronic, dry cough, unchanged. Denies: Dyspnea, Sputum, Dyspnea on exertion Gastrointestinal: Denies: Abdominal pain, Nausea, Vomiting, Diarrhea, Melena, Hematochezia Genitourinary: Denies: Dysuria, Hematuria, Frequency Musculoskeletal: Denies: Back pain, Extremity Pain Skin: Denies: Rash, Wounds Neurological: Denies: Headache, Weakness, Numbness Physical Exam Vital Signs/Narrative: Vital Signs Temp Pulse Resp BP Pulse Ox 12/11/19 19:59 97.3 F L 69 17 157/84 H 98 Inital Vital Signs reviewed: Yes General: Well nourished, Well developed, No Acute Distress Head: Normocephalic, Atraumatic Eyes: Perrl, EOMI ENT: Moist mucous membranes, No rhinorrhea, TM's clear - No cerumen impactions. Mild dullness of the right tympanic membrane., - - No lesions noted in the ear canal or external ear, no mastoid tenderness to palpation Neck: Supple, Nontender Cardiovascular: Regular rate, Regular rhythm, No murmurs Respiratory: No distress, CTA bilaterally, Chest nontender Abdomen: Soft, Nontender, Nondistended, Normal bowel sounds Back: Nontender, Normal Inspection Extremities: Nontender, No edema Skin: Normal color, No rash Neurological: Alert, Oriented x3, Cranial nerves II-XII grossly intact, Normal Strength, Normal Sensation Psychological: Normal affect, Normal Mood Diagnostic/Tx/Re-eval - Medical Decision Making Patient is evaluated for couple weeks of intermittent but worsening right ear pain. No hearing changes. No lesions are seen. Some of the pain he describes is concerning for trigeminal neuralgia. Patient does have ongoing sinus issues so this could be eustachian tube dysfunction as well. Patient be placed on a short course of steroids and given ENT for follow-up. He does not have any signs of infection at this time I do not think antibiotics are indicated. His symptoms are mild regardless. Patient is counseled on signs and symptoms requiring return to the emergency room. Patient verbalizes agreement and understand this plan. Patient discharged home in stable and improved condition. ED Disposition - Plan for ED Patient: Disposition: Home or Assisted Living Diagnosis: Right ear pain Instructions: ED Neuralgia Trigeminal Prescriptions: Prednisone [Deltasone] 40 mg PO DAILY #8 tab Transmission Status: Pending to [facility]/pharmacy #[id number] Referrals: Ameena Renee DO [Primary Care Provider] - Herman Daniels MD [STAFF PHYSICIAN] - Additional Instructions: Please follow-up with ear nose and throat doctor, Dr. Daniels. Call the office tomorrow to make an appointment. You not have any obvious signs of infection today. The exact cause is not clear but this could be trigeminal neuralgia which is irritation of the nerve that runs to her ear versus eustachian tube dysfunction. Continue take Tylenol as needed for pain. The steroid should not interact with your medications.
[2019-12-11] MEDS: predniSONE 20 MG Tablet 40 MG PO (21:02)
[2019-12-11 21:10] VITALS: RESP 16
== END 2019-12-11 21:10 | disposition home or self-care (01) ==
PROVIDERS: Emergency Provider Emergency Medicine; PCP Internal Medicine
DX: H92.01 Otalgia, right ear (principal); E78.5 Hyperlipidemia, unspecified; E03.9 Hypothyroidism, unspecified; I48.91 Unspecified atrial fibrillation; I10 Essential (primary) hypertension; K21.9 Gastro-esophageal reflux disease without esophagitis
CPT/HCPCS: 99283

== ENCOUNTER → 2019-12-13 10:57 | Outpatient (CLI) | payer OTHER, SELFPAY ==
[2019-12-11 19:59] VITALS: BMI 29.1
[2019-12-13 12:02] LABS: Hematocrit 49.2 % (40-54); Hemoglobin 15.9 g/dL (13.0-16.5); Mean Corp Hgb Conc 32.3 g/dL (32-36); Mean Corpuscular Hgb 28.3 pg (27.0-32.0); Mean Corpuscular Volume 87.5 fL (80-94); Mean Platelet Vol. 11.6 fl (6.2-12.0); Platelet Count 208 K/mm3 (150-450); RBC Distribution Width CV 13.9 % (11.6-14.6); RBC Distribution Width SD 44.1 fl (35.1-43.9); Red Blood Count 5.62 M/mm3 (4.6-6.2); White Blood Count 11.9 K/mm3 (4.4-11.0)
[2019-12-13 12:31] LABS: Albumin, Serum 4.6 g/dL (3.2-5.0); BUN 27 mg/dL (7-18); BUN/Creat Ratio 20.9 RATIO (10-20); Calcium,Total 9.4 mg/dL (8.5-10.1); Chloride 104 mmol/L (98-107); Creatinine, Serum 1.29 mg/dL (0.70-1.30); EST Glomerular Filtration Rate 60 mL/min (>60); Est Glom Filt Rate - Afr Amer 72 mL/min (>60); Glucose 111 mg/dL (74-106); Magnesium 2.5 mg/dL (1.6-2.6); Phosphorus 2.7 mg/dL (2.5-4.9); Sodium Level 137 mmol/L (136-145)
[2019-12-13 12:39] LABS: Microalbumin,Random Urine < 5.0 mg/L (NO RANGE EST.)
[2019-12-13 13:06] LABS: Vitamin D,25 Hydroxy 47.7 ng/mL
== END ==
PROVIDERS: PCP Internal Medicine; Referring Provider Internal Medicine Nephrology; Visit Provider Internal Medicine Nephrology
DX: N18.3 Chronic kidney disease, stage 3 (moderate) (principal)
CPT/HCPCS: 36415; 80069; 82043; 82306; 82570; 83735; 83970; 85027

== ENCOUNTER → 2020-07-12 09:55 | Outpatient (CLI) | payer OTHER, SELFPAY ==
[2020-07-12 12:22] LABS: Hematocrit 48.3 % (40-54); Hemoglobin 15.7 g/dL (13.0-16.5); Mean Corp Hgb Conc 32.5 g/dL (32-36); Mean Corpuscular Hgb 29.2 pg (27.0-32.0); Mean Corpuscular Volume 89.8 fL (80-94); Mean Platelet Vol. 11.8 fl (6.2-12.0); Platelet Count 197 K/mm3 (150-450); RBC Distribution Width CV 13.9 % (11.6-14.6); Red Blood Count 5.38 M/mm3 (4.6-6.2)
[2020-07-12 12:38] LABS: PTHIN 54.2 pg/mL (18.4-80.1)
[2020-07-12 12:40] LABS: Albumin, Serum 4.6 g/dL (3.2-5.0); BUN 27 mg/dL (7-18); BUN/Creat Ratio 18.1 RATIO (10-20); Calcium,Total 9.3 mg/dL (8.5-10.1); Chloride 101 mmol/L (98-107); Creatinine, Serum 1.49 mg/dL (0.70-1.30); EST Glomerular Filtration Rate 50 mL/min (>60); Est Glom Filt Rate - Afr Amer 61 mL/min (>60); Glucose 108 mg/dL (74-106); Magnesium 2.5 mg/dL (1.6-2.6); Phosphorus 3.1 mg/dL (2.5-4.9); Potassium 4.3 mmol/L (3.5-5.1); Sodium Level 138 mmol/L (136-145)
[2020-07-12 12:42] LABS: Vitamin D,25 Hydroxy 35.9 ng/mL
[2020-07-12 12:57] LABS: Microalbumin,Random Urine 11.5 mg/L (NO RANGE EST.); Microalbumin:Creatinine Ratio 11.8 mg/g CRE (<30 mg/g CRE)
== END ==
PROVIDERS: PCP Internal Medicine; Referring Provider Internal Medicine Nephrology; Visit Provider Internal Medicine Nephrology
DX: N18.30 Chronic kidney disease, stage 3 unspecified (principal); E55.9 Vitamin D deficiency, unspecified
CPT/HCPCS: 36415; 80069; 82043; 82306; 82570; 83735; 83970; 85027

== ENCOUNTER 2020-09-25 21:38 | Observation (INO) | payer OTHER, SELFPAY ==
[2020-09-25 21:39] VITALS: BP 153/86; PULSE 66; RESP 22; TEMP 37.7; O2SAT 97; BMI 28.8
--- NOTE | 2020-09-25 22:10 | EDS_ITS ---
HPI History of Present Illness Chief Complaint: Abd Pain Narrative Narrative: 64-year-old male presenting with abdominal pain which he describes as bilateral lower quadrants and radiating into his testicles and penis. He states it feels like it is burning at the tip of his penis. He states it has not been burning to urinate. Patient states the pain started abruptly in the middle the night last evening. This is been going on all day. He had a normal bowel movement this morning. He states he has not eaten much or had much fluids today because he did not feel well. Patient denies history of abdominal surgeries. Patient states he has not had a fever or chills. PFSH PFSH Medical History Anxiety Atrial fibrillation Hypertension Kidney stones Non-smoker Home Medications metoprolol succinate 50 mg PO QHS 06/06/16 [History Last Taken 07/24/16] Xarelto 20 mg PO DAILY #30 tablet 06/22/16 [Rx Last Taken 07/24/16] multivitamin [Daily Multiple Vitamin] 1 ea PO DAILY 07/11/16 [History Last Taken 07/10/16] atorvastatin 20 mg tablet 20 mg PO QHS #90 tab 07/13/17 [Rx Last Taken Unknown] diltiazem HCl 120 mg PO DAILY 08/25/17 [History Last Taken Unknown] enalapril maleate 20 mg PO BID 08/25/17 [History Last Taken Unknown] flecainide 100 mg BID 08/25/17 [History Last Taken Unknown] hydrochlorothiazide 25 mg DAILY 08/25/17 [History Last Taken Unknown] levothyroxine 25 mcg PO DAILY 08/25/17 [History Last Taken Unknown] Allergy/AdvReac Type Severity Reaction Status Date / Time No Known Allergies Allergy Verified 09/25/20 21:39 Social History Smoking Status: Never smoker ROS ROS ED Constitutional Constitutional ED: Denies chills, fever(s) or subjective Eyes Eyes: Denies blurry vision or change in vision ENT ENT ED: Denies ear pain, rhinorrhea or sore throat Cardiovascular Cardiovascular: Denies chest pain or palpitations Respiratory/Chest Respiratory/Chest: Denies cough or dyspnea Gastrointestinal Gastrointestinal: Reports abdominal pain and nausea; Denies constipation or diarrhea Genitourinary Genitourinary ED: Reports dysuria; Denies hematuria Musculoskeletal Musculoskeletal: Denies arthralgias or myalgias Integumentary Denies abscess or rash Neurologic Neurologic: Denies headache(s) or weakness EXAM Physical Exam Const Vital Signs: 09/25/20 21:39 09/25/20 21:52 09/25/20 23:08 Temperature 99.9 F H 98.6 F Temperature Source Temporal Oral Pulse Rate 66 Respiratory Rate 22 H 14 Blood Pressure 153/86 H Blood Pressure Mean 108 Pulse Ox 97 Oxygen Delivery Method Room Air Room Air 09/26/20 00:02 Temperature Temperature Source Pulse Rate 69 Respiratory Rate 15 Blood Pressure 144/72 H Blood Pressure Mean 96 Pulse Ox 95 Oxygen Delivery Method Room Air Positive well nourished HEENT Reports moist mucous membranes Negative for trauma Eyes EOMs intact bilaterally General Eye ED: Negative for pale conjunctiva or scleral icterus Chest Wall inspection of chest normal and palpation of chest normal Resp normal respiratory effort and clear to auscultation bilaterally Cardio regular rate and regular rhythm GI GI Narrative: Tenderness to palpation of the lower abdomen in the bilateral lower quadrants. Extremity normal to inspection General Extremety ED: Negative for tenderness Neuro oriented x3 and CN's II-XII intact bilaterally Sensorium / Orientation: alert Psych mental status grossly normal Skin no rashes or lesions noted and no wounds MDM MDM MDM Narrative Medical decision making narrative: Patient presenting with mid abdominal pain which radiates to the right and the left. Patient does not have any fever. He had normal bowel movements. He did complain of some dysuria however his urinalysis is negative. CBC shows his white blood cell count is 10.9 hemoglobin and hematocrit are stable. Creatinine is slightly elevated above baseline. Patient was given a liter of IV fluids. CT of the abdomen pelvis does show acute diverticulitis as interpreted by the radiologist. There does not appear to be abscess or perforation. Patient has required several doses of pain medication due to the level of his pain. He was given morphine 4 mg then Dilaudid 0.5 mg and another dose of Dilaudid 0.5 mg and his pain is still a 6. I will give him some fentanyl to see if this helps. Given his level of pain I will speak to the hospitalist about admission. Impression: 1. Acute diverticulitis 2. Intractable abdominal Lab Data Attestation: I reviewed the patient's lab results. Labs: Laboratory Results - last 24 hr 09/25/20 09/25/20 09/25/20 21:55 21:55 22:52 WBC 10.9 RBC 5.22 Hgb 15.2 Hct 45.7 MCV 87.5 MCH 29.1 MCHC 33.3 RDW Std Deviation 42.5 RDW Coeff of Ollie 13.3 Plt Count 192 MPV 11.6 Immature Gran % (Auto) 0.400 Neut % (Auto) 82.2 H Lymph % (Auto) 7.8 L [place] % (Auto) 9.0 Eos % (Auto) 0.3 Baso % (Auto) 0.3 Absolute Neuts (auto) 9.0 H Absolute Lymphs (auto) 0.85 Nucleated RBC % 0 Sodium 140 Potassium 3.7 Chloride 105 Carbon Dioxide 25.0 Anion Gap 10 BUN 24 H Creatinine 1.41 H Estim Creat Clear Calc 59.81 Est GFR (MDRD) Af Amer 65 Est GFR (MDRD) Non-Af 54 L BUN/Creatinine Ratio 17.0 Glucose 109 H Calcium 10.1 Total Bilirubin 0.90 AST 23 ALT 31 Alkaline Phosphatase 75 Total Protein 7.5 Albumin 4.3 Globulin 3.2 Albumin/Globulin Ratio 1.3 Lipase 86 Urine Color Yellow Urine Clarity Clear Urine pH 6.5 Ur Specific [place] 1.015 Urine Protein Negative Urine Glucose (UA) Normal Urine Ketones Negative Urine Occult Blood Negative Urine Nitrite Negative Urine Bilirubin Negative Urine Urobilinogen Normal Ur Leukocyte Esterase Negative Urine RBC 0 SEEN Urine WBC 0 SEEN Ur Squamous Epith Cells 0 SEEN Urine Bacteria 0 SEEN Urine Mucus 0 SEEN Radiography Diagnostic Testing: Radiology Impression Abdomen/Pelvis CT 09/25/20 23:38 IMPRESSION: 1. Findings suggest sequela of acute sigmoid colon diverticulitis. 2. Nonobstructing left-sided renal calculus. Electronically Signed: Marilia Naranjo MD at 0:23 EDT , Service support , Discharge Plan Triage Chief Complaint: Abd Pain ED Provider: Gigi Agosto Dx/Rx/DC Orders Prescriptions: No Action metoprolol succinate 100 MG tablet extended release 24 hr 50 mg PO QHS RF: 0 Xarelto 20 MG tablet 20 mg PO DAILY Qty: 30 RF: 0 multivitamin [Daily Multiple] 1 EACH tablet 1 ea PO DAILY RF: 0 enalapril maleate 20 MG tablet 20 mg PO BID RF: 0 levothyroxine 25 MCG tablet 25 mcg PO DAILY RF: 0 flecainide 100 MG tablet 100 mg BID RF: 0 hydrochlorothiazide 25 MG tablet 25 mg DAILY RF: 0 diltiazem HCl 360 MG capsule,extended release 24 hr 120 mg PO DAILY RF: 0 atorvastatin 20 mg tablet 20 mg PO QHS Qty: 90 RF: 3 Primary Care Provider: Ameena Renee
[2020-09-25] MEDS: Ondansetron 4 MG/2 ML Vial IV (22:16)
[2020-09-25] MEDS: Morphine 4 MG/ML Syringe IV (22:16)
[2020-09-25] MEDS: 0.9% Normal Saline 1,000 ML 1000 ML IV (22:16)
[2020-09-25 22:20] LABS: Absolute Lymphocyte Count 0.85 X10^3/uL (0.83-4.51); Basophil# 0.03 X10^3/uL; Basophil% 0.3 % (0-1); Eosinophil# 0.03 X10^3/uL; Eosinophils% 0.3 % (0-5); Hematocrit 45.7 % (40-54); Hemoglobin 15.2 g/dL (13.0-16.5); Lymphocyte # 0.85 X10^3/ul (0.83-4.51); Lymphocyte % 7.8 % (19-41); Mean Corp Hgb Conc 33.3 g/dL (32-36); Mean Corpuscular Hgb 29.1 pg (27.0-32.0); Mean Corpuscular Volume 87.5 fL (80-94); Mean Platelet Vol. 11.6 fl (6.2-12.0); Monocyte# 0.98 X10^3/uL; NRBC Flagged by Analyzer 0 % (0-5); Neutrophil # 8.97 X10^3/uL (2.7-7.7); Neutrophil % 82.2 % (47-70); Platelet Count 192 K/mm3 (150-450); RBC Distribution Width CV 13.3 % (11.6-14.6); RBC Distribution Width SD 42.5 fl (35.1-43.9); Red Blood Count 5.22 M/mm3 (4.6-6.2); White Blood Count 10.9 K/mm3 (4.4-11.0)
[2020-09-25 22:28] LABS: ALB/GLOB Ratio 1.3 RATIO (0.9-2.4); AST(SGOT) 23 U/L (15-37); Alanine Aminotransfer ALT/SGPT 31 U/L (16-61); Albumin, Serum 4.3 g/dL (3.2-5.0); Alkaline Phosphatase 75 U/L (45-117); Anion Gap 10 (5-15); BUN 24 mg/dL (7-18); Calcium,Total 10.1 mg/dL (8.5-10.1); Chloride 105 mmol/L (98-107); Creatinine, Serum 1.41 mg/dL (0.70-1.30); EST Glomerular Filtration Rate 54 mL/min (>60); Est Glom Filt Rate - Afr Amer 65 mL/min (>60); Estimated Creatinine Clearance 59.81 ml/min; Globulin 3.2 g/dL (2.2-4.2); Glucose 109 mg/dL (74-106); Lipase 86 U/L (73-393); Potassium 3.7 mmol/L (3.5-5.1); Protein, Total 7.5 g/dL (6.4-8.2); Sodium Level 140 mmol/L (136-145)
[2020-09-25 22:58] LABS: Bacteria 0 SEEN /hpf (None Seen); Mucous, Urine 0 SEEN /hpf (<or=2+); Red Blood Cells-Urine 0 SEEN /hpf (0-5); Squamous Epithelial Cells - UA 0 SEEN /hpf (0-5); White Blood Cells 0 SEEN /hpf (0-5)
[2020-09-25 23:00] LABS: Color, Urine Yellow (Yellow); Glucose, Dipstick Normal (Normal); Ketone-Dipstick Negative (Negative); Leukocyte Esterase-Dipstick Negative /ul (Negative); Nitrite-Dipstick Negative (Negative); Occult Blood-Urine Negative /ul (Negative); Protein-Dipstick Negative (Negative); Specific Gravity, Urine 1.015 (1.002-1.030); Urine Bilirubin Dipstick Negative (Negative); Urine Clarity Clear (Clear); Urine Urobilinogen Normal (Normal); Urine pH 6.5 (5.0 - 8.0)
[2020-09-25 23:08] VITALS: RESP 14; TEMP 37
[2020-09-25] MEDS: HYDROmorphone 0.5 MG/0.5 ML SYRINGE IV (23:12)
--- NOTE | 2020-09-25 23:38 | CT_ITS ---
STUDY: CT ABDOMEN AND PELVIS WITH CONTRAST REASON FOR EXAM: Male, 64 years old patient with abdominal pain RADIATION DOSAGE (If Supplied By Facility): CTDIvol = ( 15.945 ) mGy, DLP = ( 1488.04 ) mGycm TECHNIQUE: Transaxial images were obtained from the dome of the diaphragm to the symphysis pubis without oral contrast. 100 ml of IV Isovue-370 was administered. Sagittal and coronal images were reconstructed. Individualized dose optimization techniques were used for this CT. COMPARISON: CT of the abdomen and pelvis dated 08/25/2017. FINDINGS: There is bilateral basilar dependent atelectasis. The visualized portions of the heart are within normal limits. Normal liver. Normal gallbladder and extrahepatic biliary system. There is a enhancing nodule within the spleen and may represent small hemangioma measuring about a centimeter in size. There are also small lucencies within the medial spleen that may represent tiny cysts. Normal pancreas. Normal bilateral adrenal glands. There is a right-sided renal cyst arising from lower pole the right kidney measuring approximately 11.5 mm in size. There is a nonobstructing calculus in the lower pole of the left kidney measuring approximately 8.9 mm. Normal visualized stomach. There is no obvious dilated bowel, ascites or pneumoperitoneum. There is abnormal thickening of the cox of the mid sigmoid colon with acute inflammation surrounding several bowel consistent with sequela of acute diverticulitis. There are numerous sigmoid colon diverticula. Stool is visible throughout the rest of the colon. The appendix is visualized and appears normal. Normal abdominal aorta. Normal inferior vena cava. Normal retroperitoneum. Normal urinary bladder. Normal visualized prostate gland. There are bilateral inguinal hernias containing fat. There is a grade 1 spondylolysis at L5-S1 secondary to spondylolysis of L5. Bones appear osteopenic. There are multilevel degenerative changes of the thoracic and lumbar spine. CT/Abdomen/Pelvis W IV Cont ONLY IMPRESSION: 1. Findings suggest sequela of acute sigmoid colon diverticulitis. 2. Nonobstructing left-sided renal calculus. Electronically Signed: Marilia Naranjo, MD at 0:23 EDT , Service support ,
[2020-09-26] VITALS (13 sets, daily range): BP systolic 116–152; BP diastolic 65–86; PULSE 66–82; RESP 15–18; TEMP 36.6–37.3; O2SAT 91–98; BMI 28.8
--- NOTE | 2020-09-26 00:39 | HP.PCM.HOS_ITS ---
HPI - General General Date of Admission: 09/26/20 Date of Service: 09/26/20 Chief Complaint: Lower abdominal pain HPI Narrative TISH CONTRERAS, is a 64 M with a significant history of hypertension; hyperlipidemia and atrial flutter who presents with excruciating mid lower abdominal pain that started about 24 hours prior to presentation. The pain is aching and sharp and has been progressively worsened. The pain increases with exertion; with walking and with coughing. The pain improved slightly with rest. Patient received multiple doses of IV narcotics at the ED before he had some relief. The pain does not radiate. He denies any nausea or vomiting but because of pain he is unable to drink or eat. He has normal bowel movements. Associated with his symptoms is dysuria that is present immediately after urinating but then it goes away. Of note patient is scheduled for an ablation on 09/27/2020 and the plan was for him to be admitted at [facility] evening of 09/26/2020 for the procedure above. Reports he had ablation in the past and his atrial fibrillation change to a flutter. He is on antiarrhythmia drugs. [facility] Medical History Anxiety Atrial fibrillation Chest pain Hypertension Irregular heart beat Kidney stones Non-smoker no medical history Home Medications metoprolol succinate 50 mg PO QHS 06/06/16 [History Last Taken 07/24/16] Xarelto 20 mg PO DAILY #30 tablet 06/22/16 [Rx Last Taken 07/24/16] multivitamin [Daily Multiple Vitamin] 1 ea PO DAILY 07/11/16 [History Last Taken 07/10/16] atorvastatin 20 mg tablet 20 mg PO QHS #90 tab 07/13/17 [Rx Last Taken Unknown] diltiazem HCl 120 mg PO DAILY 08/25/17 [History Last Taken Unknown] enalapril maleate 20 mg PO BID 08/25/17 [History Last Taken Unknown] flecainide 100 mg BID 08/25/17 [History Last Taken Unknown] hydrochlorothiazide 25 mg DAILY 08/25/17 [History Last Taken Unknown] levothyroxine 25 mcg PO DAILY 08/25/17 [History Last Taken Unknown] Allergy/AdvReac Type Severity Reaction Status Date / Time No Known Allergies Allergy Verified 09/25/20 21:39 Family History Other Cancer Heart disease Surgical History (Updated 09/26/20 @ 02:[address] Dano Stout MD) History of cataract surgery Previous back surgery Social History Smoking Status: Never smoker ROS ROS Narrative 12 point review of system is negative except as stated in HPI. Vital Signs Vital Signs Vital Signs: 09/25/20 21:39 09/25/20 21:52 09/25/20 23:08 Temperature 99.9 F H 98.6 F Temperature Source Temporal Oral Pulse Rate 66 Respiratory Rate 22 H 14 Blood Pressure 153/86 H Blood Pressure Mean 108 Pulse Ox 97 Oxygen Delivery Method Room Air Room Air 09/26/20 00:02 Temperature Temperature Source Pulse Rate 69 Respiratory Rate 15 Blood Pressure 144/72 H Blood Pressure Mean 96 Pulse Ox 95 Oxygen Delivery Method Room Air Weight Weight: 98.883 kg Body Mass Index (BMI) 28.8 Physical Exam Narrative Alert and oriented x3 Nontraumatic; normocephalic Lung clear to auscultate Heart sounds S1-S2. No murmur, gallop or rubs. Abdomen bowel sounds present soft. Tender. Nondistended. Extremity without edema cyanosis or clubbing. Results Lab / Micro Data Result Diagrams: 09/25/20 21:55 09/25/20 21:55 Labs: Laboratory Results - last 24 hr 09/25/20 09/25/20 09/25/20 21:55 21:55 22:52 WBC 10.9 RBC 5.22 Hgb 15.2 Hct 45.7 MCV 87.5 MCH 29.1 MCHC 33.3 RDW Std Deviation 42.5 RDW Coeff of Ollie 13.3 Plt Count 192 MPV 11.6 Immature Gran % (Auto) 0.400 Neut % (Auto) 82.2 H Lymph % (Auto) 7.8 L [place] % (Auto) 9.0 Eos % (Auto) 0.3 Baso % (Auto) 0.3 Absolute Neuts (auto) 9.0 H Absolute Lymphs (auto) 0.85 Nucleated RBC % 0 Sodium 140 Potassium 3.7 Chloride 105 Carbon Dioxide 25.0 Anion Gap 10 BUN 24 H Creatinine 1.41 H Estim Creat Clear Calc 59.81 Est GFR (MDRD) Af Amer 65 Est GFR (MDRD) Non-Af 54 L BUN/Creatinine Ratio 17.0 Glucose 109 H Calcium 10.1 Total Bilirubin 0.90 AST 23 ALT 31 Alkaline Phosphatase 75 Total Protein 7.5 Albumin 4.3 Globulin 3.2 Albumin/Globulin Ratio 1.3 Lipase 86 Urine Color Yellow Urine Clarity Clear Urine pH 6.5 Ur Specific [place] 1.015 Urine Protein Negative Urine Glucose (UA) Normal Urine Ketones Negative Urine Occult Blood Negative Urine Nitrite Negative Urine Bilirubin Negative Urine Urobilinogen Normal Ur Leukocyte Esterase Negative Urine RBC 0 SEEN Urine WBC 0 SEEN Ur Squamous Epith Cells 0 SEEN Urine Bacteria 0 SEEN Urine Mucus 0 SEEN Radiology Impression Abdomen/Pelvis CT 09/25/20 23:38 IMPRESSION: 1. Findings suggest sequela of acute sigmoid colon diverticulitis. 2. Nonobstructing left-sided renal calculus. Electronically Signed: Marilia Naranjo MD at 0:23 EDT , Service support , Assessment & Plan Assessment/Plan (1) Sigmoid diverticulitis: (2) Elevated serum creatinine: (3) Atrial flutter: QUALIFIERS: Atrial flutter type: unspecified Qualified Code(s): I48.92 - Unspecified atrial flutter (4) HTN (hypertension): QUALIFIERS: Hypertension type: essential hypertension Qualified Code(s): I10 - Essential (primary) hypertension PLAN: Acute Sigmoid Diverticultis Low-grade fever of 99.2 Fahrenheit. Radiologist impression of abdominal/pelvic CT: Findings suggest sequela of acute sigmoid: Diverticulitis. Nonobstructing left sided renal calculus. Abdomen and pelvis CT was independently interpreted. I agree with radiologist interpretation. Oxycodone as needed and morphine IV as needed. N.p.o. except meds; sips and chips. Discussed with emergent department doctor that patient be started on Cipro IV and Flagyl IV. While inpatient will order Cipro IV and metronidazole IV. Emergency department labs reviewed showed neutrophilia and lymphopenia. Baseline white count is about 6.5. On presentation white count was 10.9. Gentle IV hydration ordered Trend CBC and BMP Elevated serum creatinine with a diagnosis of RAYNA Review of medical department labs shows mild creatinine bump without meeting criteria of RAYNA. With patient not eating and drinking patient is at risk of developing RAYNA. Will continue home lisinopril. Hold hydrochlorothiazide. Gentle IV hydration. Trend BMP. Nonobstructing kidney stone His symptoms likely secondary to acute sigmoid diverticulitis. Review of imaging department urinalysis showed normal urinalysis. IV fluids as above. Clinical monitoring. Atrial flutter Patient is scheduled for an ablation as in the HPI. to call [facility] and cancel appointment. Xarelto continued Cardizem and flecainide continued Placed on MedSur telemetry status. Hypertension Blood pressure is not within goal. Likely pain contributing. Cardizem; metoprolol and lisinopril continued. Hydralazine held. As needed hydralazine ordered. Trend blood pressure and adjust blood pressure medications. DVT prophylaxis: Subcutaneous Lovenox ordered. Charges/Coding Visit Charges OBSV E&M: 68701 Initial observation care L3
[2020-09-26] MEDS: Ciprofloxacin 400 MG/200 ML BAG 200 MG IV ×3 (01:28→22:44)
[2020-09-26] MEDS: metroNIDAZOLE 500 MG/100 ML BAG 100 MG IV ×3 (02:25→21:16)
[2020-09-26] MEDS: 0.9% Normal Saline 1,000 ML 75 ML IV ×2 (02:25→16:42)
[2020-09-26] MEDS: Morphine 2 MG/ML Syringe IV ×3 (02:32→09:37)
[2020-09-26] MEDS: Levothyroxine 25 MCG TABLET PO (05:37)
[2020-09-26 06:24] LABS: Absolute Neutrophil Count 13.5 X10^3/uL (2.0-7.7); Basophil# 0.02 X10^3/uL; Basophil% 0.1 % (0-1); Hematocrit 44.6 % (40-54); Hemoglobin 15.1 g/dL (13.0-16.5); Mean Corp Hgb Conc 33.9 g/dL (32-36); Mean Corpuscular Hgb 29.4 pg (27.0-32.0); Mean Corpuscular Volume 86.9 fL (80-94); Mean Platelet Vol. 11.2 fl (6.2-12.0); Monocyte# 1.01 X10^3/uL; Monocyte% 6.8 % (0-10); NRBC Flagged by Analyzer 0 % (0-5); Neutrophil # 13.49 X10^3/uL (2.7-7.7); Neutrophil % 90.5 % (47-70); POSITIVE DIFFERENTIAL YES; Platelet Count 174 K/mm3 (150-450); RBC Distribution Width CV 13.4 % (11.6-14.6); RBC Distribution Width SD 42.5 fl (35.1-43.9); Red Blood Count 5.13 M/mm3 (4.6-6.2); White Blood Count 14.9 K/mm3 (4.4-11.0)
[2020-09-26 06:32] LABS: Differential Indicated SCAN CRITERIA MET
[2020-09-26 06:47] LABS: Anion Gap 7 (5-15); BUN 22 mg/dL (7-18); BUN/Creat Ratio 17.9 RATIO (10-20); Calcium,Total 9.3 mg/dL (8.5-10.1); Chloride 105 mmol/L (98-107); Creatinine, Serum 1.23 mg/dL (0.70-1.30); EST Glomerular Filtration Rate 63 mL/min (>60); Est Glom Filt Rate - Afr Amer 76 mL/min (>60); Estimated Creatinine Clearance 68.57 ml/min; Glucose 138 mg/dL (74-106); Sodium Level 137 mmol/L (136-145)
[2020-09-26] MEDS: Flecainide 100 MG Tablet PO ×2 (09:36→20:46)
[2020-09-26] MEDS: Multivitamins,Therapeutic Tablet 1 TABLET PO (09:36)
[2020-09-26] MEDS: Lisinopril 20 MG Tablet PO ×2 (09:36→20:46)
[2020-09-26] MEDS: dilTIAZem CD 120 MG Capsule PO (09:37)
[2020-09-26] MEDS: 0.9% Saline Lock 10 ML Syringe IV (09:37)
--- NOTE | 2020-09-26 12:10 | PN.HOSP_ITS ---
Documented by User: Leon SANZ 09/26/20 12:22 Subjective Subjective Patient is a 64-year-old male resting in bed, alert and oriented x3. Patient still reports ongoing abdominal pain, however reports that pain is amenable to current medication regimen. Denies chest pain, shortness of breath, palpitati ons, sputum production, hemoptysis, fever, chills, N/V/D Objective Data Objective Data Vital Signs: Vital Signs Temp Pulse Resp BP Pulse Ox 98.4 F 75 18 147/86 H 98 09/26/20 09:43 09/26/20 10:47 09/26/20 09:43 09/26/20 09:43 09/26/20 09:43 Oxygen Delivery Method Room Air Weight: 218 lb 4.122 oz Body Mass Index (BMI) 28.8 Intake & Output: Intake and Output for Last 24 Hours 09/24/20 09/25/20 09/26/20 23:59 23:59 23:59 Intake Total 1000 / 1000 508.75 / 508.75 Output Total 0 / 0 350 / 350 Balance 1000 / 1000 158.75 / 158.75 Lab / Micro Data Result Diagrams: 09/26/20 05:59 09/26/20 05:59 Labs: Laboratory Results - last 24 hr 09/25/20 09/25/20 09/25/20 21:55 21:55 22:52 WBC 10.9 RBC 5.22 Hgb 15.2 Hct 45.7 MCV 87.5 MCH 29.1 MCHC 33.3 RDW Std Deviation 42.5 RDW Coeff of Ollie 13.3 Plt Count 192 MPV 11.6 Immature Gran % (Auto) 0.400 Neut % (Auto) 82.2 H Lymph % (Auto) 7.8 L [place] % (Auto) 9.0 Eos % (Auto) 0.3 Baso % (Auto) 0.3 Absolute Neuts (auto) 9.0 H Absolute Lymphs (auto) 0.85 Nucleated RBC % 0 Sodium 140 Potassium 3.7 Chloride 105 Carbon Dioxide 25.0 Anion Gap 10 BUN 24 H Creatinine 1.41 H Estim Creat Clear Calc 59.81 Est GFR (MDRD) Af Amer 65 Est GFR (MDRD) Non-Af 54 L BUN/Creatinine Ratio 17.0 Glucose 109 H Calcium 10.1 Total Bilirubin 0.90 AST 23 ALT 31 Alkaline Phosphatase 75 Total Protein 7.5 Albumin 4.3 Globulin 3.2 Albumin/Globulin Ratio 1.3 Lipase 86 Urine Color Yellow Urine Clarity Clear Urine pH 6.5 Ur Specific [place] 1.015 Urine Protein Negative Urine Glucose (UA) Normal Urine Ketones Negative Urine Occult Blood Negative Urine Nitrite Negative Urine Bilirubin Negative Urine Urobilinogen Normal Ur Leukocyte Esterase Negative Urine RBC 0 SEEN Urine WBC 0 SEEN Ur Squamous Epith Cells 0 SEEN Urine Bacteria 0 SEEN Urine Mucus 0 SEEN 09/26/20 09/26/20 05:59 05:59 WBC 14.9 H RBC 5.13 Hgb 15.1 Hct 44.6 MCV 86.9 MCH 29.4 MCHC 33.9 RDW Std Deviation 42.5 RDW Coeff of Ollie 13.4 Plt Count 174 MPV 11.2 Immature Gran % (Auto) 0.600 Neut % (Auto) 90.5 H Lymph % (Auto) 2.0 L [place] % (Auto) 6.8 Eos % (Auto) 0.0 Baso % (Auto) 0.1 Absolute Neuts (auto) 13.5 H Absolute Lymphs (auto) 0.30 L Nucleated RBC % 0 Sodium 137 Potassium 4.0 Chloride 105 Carbon Dioxide 25.0 Anion Gap 7 BUN 22 H Creatinine 1.23 Estim Creat Clear Calc 68.57 Est GFR (MDRD) Af Amer 76 Est GFR (MDRD) Non-Af 63 BUN/Creatinine Ratio 17.9 Glucose 138 H Calcium 9.3 Total Bilirubin AST ALT Alkaline Phosphatase Total Protein Albumin Globulin Albumin/Globulin Ratio Lipase Urine Color Urine Clarity Urine pH Ur Specific [place] Urine Protein Urine Glucose (UA) Urine Ketones Urine Occult Blood Urine Nitrite Urine Bilirubin Urine Urobilinogen Ur Leukocyte Esterase Urine RBC Urine WBC Ur Squamous Epith Cells Urine Bacteria Urine Mucus Radiography Diagnostic Testing: Radiology Impression Abdomen/Pelvis CT 09/25/20 23:38 IMPRESSION: 1. Findings suggest sequela of acute sigmoid colon diverticulitis. 2. Nonobstructing left-sided renal calculus. Electronically Signed: Marilia Naranjo MD at 0:23 EDT , Service support , Physical Exam Const alert, oriented x3 and no apparent distress HEENT head/scalp atraumatic and moist oral mucous membranes Head and Scalp: normocephalic Eyes PERRL, EOMs intact bilaterally and conjunctivae normal Neck no lymphadenopathy, supple and no JVD Resp normal respiratory effort, no retractions and no use of accessory muscles Cardio regular rate, regular rhythm, no murmurs and no JVD GI GI Narrative: Abdomen tender to palpation throughout all 4 quadrants. Extremity normal to inspection, full ROM and no clubbing, cyanosis or edema Peripheral Pulses: Yes pulses 2+ throughout Skin no rashes or lesions noted and no wounds Neuro CN's II-XII intact bilaterally Psych affect normal Assessment & Plan Assessment/Plan (1) Sigmoid diverticulitis: (2) Elevated serum creatinine: (3) Atrial flutter: QUALIFIERS: Atrial flutter type: unspecified Qualified Code(s): I48.92 - Unspecified atrial flutter (4) HTN (hypertension): QUALIFIERS: Hypertension type: essential hypertension Qualified Code(s): I10 - Essential (primary) hypertension PLAN: See subjective for patient presentation. It was post to have an ablation at [facility] on 09/27/2020, which has been subsequently canceled and lieu of diverticulitis. Patient would like to remain admitted overnight for pain management secondary to #1. Discharge planning; patient would like to return home on discharge and identifies no home health care concerns. 1) acute sigmoid diverticulitis Vital signs stable and patient is afebrile. Leukocytosis at 15,000 WBCs with neutrophilic predominance. CT of the abdomen/pelvis on admission demonstrated acute sigmoid diverticulitis. Plan; continue metronidazole and ciprofloxacin, Tylenol as needed, oxycodone as needed, Zofran as needed 2) acute RAYNA Resolved, currently 1.2. Plan; continue gentle IV fluids. 3) atrial flutter On Cardizem and flecainide for rate and rhythm control. On Xarelto for anticoagulation. Patient was supposed to have an ablation scheduled for 09/27/2020, which has been subsequently canceled due to #1. 4) hypertension Stable. Plan; continue Cardizem, metoprolol and lisinopril, hydralazine as needed. 5) hypothyroidism Continue Synthroid. 6) hyperlipidemia Continue statin. DVT prophylaxis - Xarelto Patient seen by Leon Wang PA-C, under the supervision of Dr. Rooney. Documented by User: Dr. Blaise Rooney MD 09/26/20 13:27 Objective Data Lab / Micro Data Result Diagrams: 09/26/20 05:59 09/26/20 05:59 Assessment & Plan Addt'l Comments This patient was seen in conjunction with Leon Wang PA-C. I have independently interviewed and examined the patient and reviewed pertinent historical, laboratory, and other data. Please refer to Leon Wang PA-C's note for details of this patient's presentation, findings, and recommendations. I have reviewed Leon Wang PA-C's note and concur with documented findings. In brief, patient is a 64-year-old gentleman admitted with abdominal pain of the abdomen demonstrated 1. Findings suggest sequela of acute sigmoid colon diverticulitis. 2. Nonobstructing left-sided renal calculus. Physical Examination: GENERAL: cooperative HEENT: Atraumatic; EYES; Anicteric, Normal Conjunctiva NECK; supple, normal thyroid, RESPIRATORY: Diminished to auscultation CARDIOVASCULAR: Regular S1 S2, GI: soft, normoactive bowel sounds, : No Renal angle tenderness; EXTREMITIES: No edema, no clubbing, MUSCULOSKELETAL: no muscle waisting NEURO: Awake; no lateralizing signs. SKIN: No Rash PSYCH; Flat affect Assessment: 1. Acute sigmoid diverticulitis 2. Renal calculi 3. Paroxysmal A. fib 4. Essential hypertension 5. Hypothyroidism 6. Dyslipidemia Recommendations: 1. I have discussed the results of my overview and impressions with the patient 2. Options for management were reviewed Charges/Coding Visit Charges Inpatient E&M: 70688 Subs Hosp L2
[2020-09-26] MEDS: oxyCODONE 5 MG Tablet PO ×3 (12:38→22:43)
[2020-09-26] MEDS: Rivaroxaban 20 MG Tablet PO (16:44)
[2020-09-26] MEDS: Metoprolol(XL)Succ 50 MG Tablet PO (20:46)
[2020-09-26] MEDS: Atorvastatin Calcium 20 MG Tablet PO (20:46)
[2020-09-26] MEDS: MELATONIN 3 MG TABLET PO (22:44)
[2020-09-27] VITALS (11 sets, daily range): BP systolic 94–155; BP diastolic 48–83; PULSE 56–71; RESP 12–20; TEMP 36.8–37.6; O2SAT 92–97
[2020-09-27 05:23] LABS: Absolute Lymphocyte Count 0.55 X10^3/uL (0.83-4.51); Absolute Neutrophil Count 12.3 X10^3/uL (2.0-7.7); Basophil# 0.03 X10^3/uL; Basophil% 0.2 % (0-1); Differential Indicated SCAN CRITERIA MET; Eosinophil# 0.02 X10^3/uL; Eosinophils% 0.1 % (0-5); Hemoglobin 12.6 g/dL (13.0-16.5); Lymphocyte # 0.55 X10^3/ul (0.83-4.51); Mean Corp Hgb Conc 32.3 g/dL (32-36); Mean Corpuscular Volume 89.9 fL (80-94); Mean Platelet Vol. 11.3 fl (6.2-12.0); Monocyte# 0.91 X10^3/uL; Monocyte% 6.6 % (0-10); NRBC Flagged by Analyzer 0 % (0-5); Neutrophil # 12.28 X10^3/uL (2.7-7.7); Neutrophil % 88.5 % (47-70); POSITIVE DIFFERENTIAL YES; Platelet Count 153 K/mm3 (150-450); RBC Distribution Width CV 13.7 % (11.6-14.6); RBC Distribution Width SD 45.4 fl (35.1-43.9); Red Blood Count 4.34 M/mm3 (4.6-6.2); White Blood Count 13.9 K/mm3 (4.4-11.0)
[2020-09-27] MEDS: metroNIDAZOLE 500 MG/100 ML BAG 100 MG IV ×2 (05:45→13:37)
[2020-09-27] MEDS: 0.9% Normal Saline 1,000 ML 75 ML IV (05:45)
[2020-09-27] MEDS: Levothyroxine 25 MCG TABLET PO (05:46)
[2020-09-27 05:47] LABS: Anion Gap 7 (5-15); BUN 22 mg/dL (7-18); BUN/Creat Ratio 15.8 RATIO (10-20); Calcium,Total 8.5 mg/dL (8.5-10.1); Chloride 100 mmol/L (98-107); Creatinine, Serum 1.39 mg/dL (0.70-1.30); EST Glomerular Filtration Rate 55 mL/min (>60); Est Glom Filt Rate - Afr Amer 66 mL/min (>60); Estimated Creatinine Clearance 60.68 ml/min; Glucose 122 mg/dL (74-106); Potassium 3.9 mmol/L (3.5-5.1); Sodium Level 133 mmol/L (136-145)
[2020-09-27] MEDS: oxyCODONE 5 MG Tablet PO (08:23)
[2020-09-27] MEDS: Multivitamins,Therapeutic Tablet 1 TABLET PO (08:23)
--- NOTE | 2020-09-27 10:55 | PCM.PN.HOSP ---
Subjective Subjective In brief, patient is a 64-year-old gentleman admitted with abdominal pain of the abdomen demonstrated Findings suggestive of sequela of acute sigmoid colon diverticulitis and Nonobstructing left-sided renal calculus Objective Data Objective Data Vital Signs: Vital Signs Temp Pulse Resp BP Pulse Ox 98.9 F 60 12 107/60 94 09/27/20 08:19 09/27/20 08:19 09/27/20 08:19 09/27/20 08:19 09/27/20 08:19 Oxygen Delivery Method Room Air Weight: 99 kg Body Mass Index (BMI) 28.8 Intake & Output: Intake and Output for Last 24 Hours 09/25/20 09/26/20 09/27/20 23:59 23:59 23:59 Intake Total 1000 / 1000 3601.25 / 3601.25 687.50 / 687.50 Output Total 0 / 0 1400 / 1400 800 / 800 Balance 1000 / 1000 2201.25 / 2201.25 -112.50 / -112.50 Lab / Micro Data Result Diagrams: 09/27/20 05:08 09/27/20 05:08 Labs: Laboratory Results - last 24 hr 09/27/20 09/27/20 05:08 05:08 WBC 13.9 H RBC 4.34 L Hgb 12.6 L Hct 39.0 L MCV 89.9 MCH 29.0 MCHC 32.3 RDW Std Deviation 45.4 H RDW Coeff of Ollie 13.7 Plt Count 153 MPV 11.3 Immature Gran % (Auto) 0.600 Neut % (Auto) 88.5 H Lymph % (Auto) 4.0 L [place] % (Auto) 6.6 Eos % (Auto) 0.1 Baso % (Auto) 0.2 Absolute Neuts (auto) 12.3 H Absolute Lymphs (auto) 0.55 L Nucleated RBC % 0 Sodium 133 L Potassium 3.9 Chloride 100 Carbon Dioxide 26.0 Anion Gap 7 BUN 22 H Creatinine 1.39 H Estim Creat Clear Calc 60.68 Est GFR (MDRD) Af Amer 66 Est GFR (MDRD) Non-Af 55 L BUN/Creatinine Ratio 15.8 Glucose 122 H Calcium 8.5 Physical Exam Narrative GENERAL: cooperative HEENT: Atraumatic; EYES; Anicteric, Normal Conjunctiva NECK; supple, normal thyroid, RESPIRATORY: Diminished to auscultation CARDIOVASCULAR: Regular S1 S2, GI: soft, normoactive bowel sounds, : No Renal angle tenderness; EXTREMITIES: No edema, no clubbing, MUSCULOSKELETAL: no muscle waisting NEURO: Awake; no lateralizing signs. SKIN: No Rash PSYCH; Flat affect Assessment & Plan Assessment/Plan (1) Sigmoid diverticulitis: (2) Elevated serum creatinine: (3) Atrial flutter: QUALIFIERS: Atrial flutter type: unspecified Qualified Code(s): I48.92 - Unspecified atrial flutter (4) HTN (hypertension): QUALIFIERS: Hypertension type: essential hypertension Qualified Code(s): I10 - Essential (primary) hypertension PLAN: In brief, patient is a 64-year-old gentleman admitted with abdominal pain of the abdomen demonstrated Findings suggestive of sequela of acute sigmoid colon diverticulitis and Nonobstructing left-sided renal calculus. 1. Acute sigmoid diverticulitis -Admitted to a monitored bed managed with broad-spectrum antibiotic therapy with Flagyl ciprofloxacin. Patient still has some pain plan is to monitor patient for an additional day since his WBC count is still elevated 2. Renal calculi -Nonobstructive we will treat symptomatically 3. Paroxysmal A. fib/flutter ?Patient has undergone previous ablation was scheduled to undergo repeat ablation at [facility] in [place] on 09/27/2020 however he happened to be in the hospital. Currently on flecainide did continue. On systemic anticoagulation with Xarelto did continue 4. Hypertension - Blood pressure controlled, home medications continued with dose adjustment as needed 5. Hypothyroidism - Patient is on levothyroxine home dose continued 6. Dyslipidemia -Patient is on statin therapy, continued at home dose 7. DVT prophylaxis ?On Xarelto Acute Sigmoid Diverticultis Low-grade fever of 99.2 Fahrenheit. Radiologist impression of abdominal/pelvic CT: Findings suggest sequela of acute sigmoid: Diverticulitis. Nonobstructing left sided renal calculus. Abdomen and pelvis CT was independently interpreted. I agree with radiologist interpretation. Oxycodone as needed and morphine IV as needed. N.p.o. except meds; sips and chips. Discussed with emergent department doctor that patient be started on Cipro IV and Flagyl IV. While inpatient will order Cipro IV and metronidazole IV. Emergency department labs reviewed showed neutrophilia and lymphopenia. Baseline white count is about 6.5. On presentation white count was 10.9. Gentle IV hydration ordered Trend CBC and BMP Elevated serum creatinine with a diagnosis of RAYNA Review of medical department labs shows mild creatinine bump without meeting criteria of RAYNA. With patient not eating and drinking patient is at risk of developing RAYNA. Will continue home lisinopril. Hold hydrochlorothiazide. Gentle IV hydration. Trend BMP. Nonobstructing kidney stone His symptoms likely secondary to acute sigmoid diverticulitis. Review of imaging department urinalysis showed normal urinalysis. IV fluids as above. Clinical monitoring. Atrial flutter Patient is scheduled for an ablation as in the HPI. to call [facility] and cancel appointment. Xarelto continued Cardizem and flecainide continued Placed on MedSur telemetry status. Hypertension Blood pressure is not within goal. Likely pain contributing. Cardizem; metoprolol and lisinopril continued. Hydralazine held. As needed hydralazine ordered. Trend blood pressure and adjust blood pressure medications. DVT prophylaxis: Subcutaneous Lovenox ordered. Charges/Coding Visit Charges Inpatient E&M: 85515 Subs Hosp L2
[2020-09-27] MEDS: Ciprofloxacin 400 MG/200 ML BAG 200 MG IV ×2 (11:12→23:00)
[2020-09-27] MEDS: Flecainide 100 MG Tablet PO ×2 (11:12→23:03)
[2020-09-27] MEDS: 0.9% Normal Saline 1,000 ML 150 ML IV ×2 (17:30→23:04)
[2020-09-27] MEDS: Rivaroxaban 20 MG Tablet PO (17:31)
[2020-09-27] MEDS: Acetaminophen 325 MG Tablet 650 MG PO (23:01)
[2020-09-27] MEDS: Atorvastatin Calcium 20 MG Tablet PO (23:01)
[2020-09-27] MEDS: Metoprolol(XL)Succ 50 MG Tablet PO (23:02)
[2020-09-27] MEDS: Lisinopril 20 MG Tablet PO (23:03)
[2020-09-28] VITALS (7 sets, daily range): BP systolic 124–136; BP diastolic 72–79; PULSE 57–62; RESP 18; TEMP 36.4–36.7; O2SAT 92–97
[2020-09-28] MEDS: metroNIDAZOLE 500 MG/100 ML BAG 100 MG IV ×2 (01:56→06:12)
[2020-09-28] MEDS: 0.9% Normal Saline 1,000 ML 150 ML IV (06:12)
[2020-09-28] MEDS: Levothyroxine 25 MCG TABLET PO (06:15)
[2020-09-28] MEDS: Acetaminophen 325 MG Tablet 650 MG PO (06:19)
[2020-09-28] MEDS: Multivitamins,Therapeutic Tablet 1 TABLET PO (07:52)
[2020-09-28] MEDS: Lisinopril 20 MG Tablet PO (07:52)
[2020-09-28] MEDS: Flecainide 100 MG Tablet PO (07:52)
[2020-09-28] MEDS: Senna/Docusate Sodium 1 Tablet 2 TABLET PO (07:54)
[2020-09-28 08:56] LABS: Absolute Lymphocyte Count 0.47 X10^3/uL (0.83-4.51); Absolute Neutrophil Count 8.2 X10^3/uL (2.0-7.7); Basophil# 0.03 X10^3/uL; Basophil% 0.3 % (0-1); Eosinophil# 0.05 X10^3/uL; Eosinophils% 0.5 % (0-5); Hematocrit 40.8 % (40-54); Hemoglobin 13.3 g/dL (13.0-16.5); Lymphocyte # 0.47 X10^3/ul (0.83-4.51); Mean Corp Hgb Conc 32.6 g/dL (32-36); Mean Corpuscular Volume 88.9 fL (80-94); Mean Platelet Vol. 11.7 fl (6.2-12.0); Monocyte# 0.58 X10^3/uL; Monocyte% 6.2 % (0-10); NRBC Flagged by Analyzer 0 % (0-5); Neutrophil # 8.21 X10^3/uL (2.7-7.7); Neutrophil % 87.7 % (47-70); POSITIVE DIFFERENTIAL YES; Platelet Count 160 K/mm3 (150-450); RBC Distribution Width CV 13.8 % (11.6-14.6); RBC Distribution Width SD 45.1 fl (35.1-43.9); Red Blood Count 4.59 M/mm3 (4.6-6.2); White Blood Count 9.4 K/mm3 (4.4-11.0)
[2020-09-28 09:01] LABS: Differential Indicated SCAN CRITERIA MET
[2020-09-28 09:12] LABS: Anion Gap 6 (5-15); BUN 18 mg/dL (7-18); BUN/Creat Ratio 15.1 RATIO (10-20); Calcium,Total 8.7 mg/dL (8.5-10.1); Chloride 108 mmol/L (98-107); Creatinine, Serum 1.19 mg/dL (0.70-1.30); EST Glomerular Filtration Rate 65 mL/min (>60); Est Glom Filt Rate - Afr Amer 79 mL/min (>60); Estimated Creatinine Clearance 70.87 ml/min; Glucose 115 mg/dL (74-106); Magnesium 2.4 mg/dL (1.6-2.6); Potassium 4.1 mmol/L (3.5-5.1); Sodium Level 139 mmol/L (136-145)
--- NOTE | 2020-09-28 09:48 | DS.PCM_ITS ---
Providers Date of Admission: 09/26/20 Primary Care Physician: Dr. Ameena Renee DO Reason For Visit: ACUTE SIGMOID DIVERTICULITIS Diagnosis Discharge Diagnosis (1) Sigmoid diverticulitis: Status: Acute Code(s): K57.32 - Diverticulitis of large intestine without perforation or abscess without bleeding (2) Elevated serum creatinine: Status: Acute Code(s): R79.89 - Other specified abnormal findings of blood chemistry (3) Atrial flutter: Status: Acute Code(s): I48.92 - Unspecified atrial flutter Qualifiers: Atrial flutter type: unspecified Qualified Code(s): I48.92 - Unspecifie d atrial flutter (4) HTN (hypertension): Status: Chronic Code(s): I10 - Essential (primary) hypertension Qualifiers: Hypertension type: essential hypertension Qualified Code(s): I10 - Essential (primary) hypertension Medications at Discharge Home Medications metoprolol succinate 50 mg PO QHS 06/06/16 Xarelto 20 mg PO DAILY #30 tablet 06/22/16 multivitamin [Daily Multiple] 1 ea PO DAILY 07/11/16 atorvastatin 20 mg tablet 20 mg PO QHS #90 tab 07/13/17 diltiazem HCl 120 mg PO DAILY 08/25/17 enalapril maleate 20 mg PO BID 08/25/17 flecainide 100 mg BID 08/25/17 hydrochlorothiazide 25 mg DAILY 08/25/17 levothyroxine 25 mcg PO DAILY 08/25/17 ciprofloxacin HCl 500 mg PO BID #10 tab 09/28/20 metronidazole [Flagyl] 500 mg PO TID #15 tab 09/28/20 oxycodone 5 mg PO Q4H PRN PRN 5 Days #20 tab 09/28/20 Hospital Course Summary of Care Provided Minutes Spent on Discharge: 35 Hospital Course: In brief, patient is a 64-year-old gentleman admitted with abdominal pain of the abdomen demonstrated Findings suggestive of sequela of acute sigmoid colon diverticulitis and Nonobstructing left-sided renal calculus. 1. Acute sigmoid diverticulitis -Admitted to a monitored bed managed with broad-spectrum antibiotic therapy with Flagyl ciprofloxacin. Patient still has some pain plan is to monitor patient for an additional day since his WBC count is still elevated -patient did improve clinically discharged home with a 5-day course of Cipro and Flagyl instructed to follow-up with PCP within 1 week 2. Renal calculi -Nonobstructive we will treat symptomatically 3. Paroxysmal A. fib/flutter ?Patient has undergone previous ablation was scheduled to undergo repeat ablation at [facility] in [place] on 09/27/2020 however he happened to be in the hospital. Currently on flecainide did continue. On systemic anticoagulation with Xarelto did continue 4. Hypertension - Blood pressure controlled, home medications continued with dose adjustment as needed 5. Hypothyroidism - Patient is on levothyroxine home dose continued 6. Dyslipidemia -Patient is on statin therapy, continued at home dose 7. DVT prophylaxis ?On Xarelto Physical Exam Narrative GENERAL: cooperative HEENT: Atraumatic; EYES; Anicteric, Normal Conjunctiva NECK; supple, normal thyroid, RESPIRATORY: Diminished to auscultation CARDIOVASCULAR: Regular S1 S2, GI: soft, normoactive bowel sounds, : No Renal angle tenderness; EXTREMITIES: No edema, no clubbing, MUSCULOSKELETAL: no muscle waisting NEURO: Awake; no lateralizing signs. SKIN: No Rash PSYCH; Flat affect Weight / BMI Weight Weight: 99 kg Body Mass Index (BMI) 28.8 ABG / Lab / Microbiology Data Result Diagrams: 09/28/20 08:37 09/28/20 08:37 Laboratory: Laboratory Results - last 24 hr 09/27/20 09/28/20 09/28/20 16:57 08:37 08:37 WBC 9.4 RBC 4.59 L Hgb 13.3 Hct 40.8 MCV 88.9 MCH 29.0 MCHC 32.6 RDW Std Deviation 45.1 H RDW Coeff of Ollie 13.8 Plt Count 160 MPV 11.7 Immature Gran % (Auto) 0.300 Neut % (Auto) 87.7 H Lymph % (Auto) 5.0 L [place] % (Auto) 6.2 Eos % (Auto) 0.5 Baso % (Auto) 0.3 Absolute Neuts (auto) 8.2 H Absolute Lymphs (auto) 0.47 L Nucleated RBC % 0 Sodium 139 Potassium 4.1 Chloride 108 H Carbon Dioxide 25.0 Anion Gap 6 BUN 18 Creatinine 1.19 Estim Creat Clear Calc 70.87 Est GFR (MDRD) Af Amer 79 Est GFR (MDRD) Non-Af 65 BUN/Creatinine Ratio 15.1 Glucose 115 H Calcium 8.7 Magnesium 2.0 2.4 D/C Instructions Discharge Diet: No restrictions Discharge Activity: Return to Normal Activity and May Not Drive (Taking narcotics) Call your doctor if you observe: Fever of 101 or Higher, Shortness of breath, Fainting spells and Chest pain Meaningful Use Info Meaningful Use Diagnoses (Choose all that apply): None applicable Discharge Plan Admission Admit Date/Time: 09/26/20 00:48 Attending Provider: Blaise Rooney Primary Care Provider: Ameena Renee Discharge Orders/Prescriptions Prescriptions: New ciprofloxacin HCl 500 mg tablet 500 mg PO BID Qty: 10 RF: 0 metronidazole [Flagyl] 500 mg tablet 500 mg PO TID Qty: 15 RF: 0 oxycodone 5 mg Tablet 5 mg PO Q4H PRN PRN (Reason: Pain Score 4-5) 5 Days Qty: 20 RF: 0 Continued metoprolol succinate 100 MG tablet extended release 24 hr 50 mg PO QHS RF: 0 Xarelto 20 MG tablet 20 mg PO DAILY Qty: 30 RF: 0 multivitamin [Daily Multiple] 1 EACH tablet 1 ea PO DAILY RF: 0 enalapril maleate 20 MG tablet 20 mg PO BID RF: 0 levothyroxine 25 MCG tablet 25 mcg PO DAILY RF: 0 flecainide 100 MG tablet 100 mg BID RF: 0 hydrochlorothiazide 25 MG tablet 25 mg DAILY RF: 0 diltiazem HCl 360 MG capsule,extended release 24 hr 120 mg PO DAILY RF: 0 atorvastatin 20 mg tablet 20 mg PO QHS Qty: 90 RF: 3 Referrals / Follow Up: Ameena Renee DO [Primary Care Provider] - In 1 Week Disposition Disposition (needs filled in before D/C Order can be placed): Home, self care Charges/Coding Visit Charges Inpatient E&M: 77971 Disch Hosp
[2020-09-28] MEDS: dilTIAZem CD 120 MG Capsule PO (09:52)
[2020-09-28] MEDS: Ciprofloxacin 400 MG/200 ML BAG 200 MG IV (09:53)
--- NOTE | 2020-09-28 09:59 | PCM.DC ---
Discharge Instructions Diet Discharge Diet: No restrictions Dressing / Incision Call your doctor if you observe: Fever of 101 or Higher, Shortness of breath, Fainting spells and Chest pain Follow Up Care Test Results: Test results from this visit will be discussed in further detail at your follow-up appointment, if applicable. Discharge Plan Admission Admit Date/Time: 09/26/20 00:48 Attending Provider: Blaise Rooney Primary Care Provider: Ameena Renee Discharge Orders/Prescriptions Prescriptions: New ciprofloxacin HCl 500 mg tablet 500 mg PO BID Qty: 10 RF: 0 metronidazole [Flagyl] 500 mg tablet 500 mg PO TID Qty: 15 RF: 0 oxycodone 5 mg Tablet 5 mg PO Q4H PRN PRN (Reason: Pain Score 4-5) 5 Days Qty: 20 RF: 0 Continued metoprolol succinate 100 MG tablet extended release 24 hr 50 mg PO QHS RF: 0 Xarelto 20 MG tablet 20 mg PO DAILY Qty: 30 RF: 0 multivitamin [Daily Multiple] 1 EACH tablet 1 ea PO DAILY RF: 0 enalapril maleate 20 MG tablet 20 mg PO BID RF: 0 levothyroxine 25 MCG tablet 25 mcg PO DAILY RF: 0 flecainide 100 MG tablet 100 mg BID RF: 0 hydrochlorothiazide 25 MG tablet 25 mg DAILY RF: 0 diltiazem HCl 360 MG capsule,extended release 24 hr 120 mg PO DAILY RF: 0 atorvastatin 20 mg tablet 20 mg PO QHS Qty: 90 RF: 3 Referrals / Follow Up: Ameena Renee DO [Primary Care Provider] - In 1 Week Disposition Disposition (needs filled in before D/C Order can be placed): Home, self care
--- NOTE | 2020-09-28 10:06 | CASEMGMT ---
Pt/registration was not aware that MCR A was already active as pt does turn 65 later this month, so pt has MCR A as a secondary. This RN CM to room with CAST form, explanation done-pt voices understanding, and signs CAST form. Original to chart and copy to pt. Pt has MCR IP vs OBS booklet at bedside. Pt voices no further questions/concerns/needs. SStaten RN CM
--- NOTE | 2020-09-28 10:30 | PHA.DC.MC ---
Pharmacy Service has performed discharge medication reconciliation and counseling for this patient. The patient was counseled on the following discharge medications and changes in medications for homegoing were reviewed. 1. CIPRO - ALSO REVIEWED S/S IRREGULAR HEARTBEAT SINCE PT HAS CARDIAC HX 2. FLAGYL 3. OXYCODONE The Reason for Use, instructions for use, and potential side effects were reviewed for all new medications. The patient's questions regarding all of their medications were answered. The patient was able to verbally demonstrate an understanding of their discharge medications. Home Medications metoprolol succinate 50 mg PO QHS 06/06/16 Xarelto 20 mg PO DAILY #30 tablet 06/22/16 multivitamin [Daily Multiple] 1 ea PO DAILY 07/11/16 atorvastatin 20 mg tablet 20 mg PO QHS #90 tab 07/13/17 diltiazem HCl 120 mg PO DAILY 08/25/17 enalapril maleate 20 mg PO BID 08/25/17 flecainide 100 mg BID 08/25/17 hydrochlorothiazide 25 mg DAILY 08/25/17 levothyroxine 25 mcg PO DAILY 08/25/17 ciprofloxacin HCl 500 mg PO BID #10 tab 09/28/20 metronidazole [Flagyl] 500 mg PO TID #15 tab 09/28/20 oxycodone 5 mg PO Q4H PRN PRN 5 Days #20 tab 09/28/20 The patient's discharge medication list was reviewed for discrepancies and discrepancies were resolved.
== END 2020-09-28 09:55 | disposition home or self-care (01) ==
LOC: ED 22:03 → PCU 09-26 01:00
PROVIDERS: Physician Assistant; Admitting Provider Hospitalist; Emergency Provider Student in an Organized Health Care Education/Training Program; PCP Internal Medicine; Visit Provider Internal Medicine
DX: K57.32 Diverticulitis of large intestine without perforation or abscess without bleeding (principal); F41.9 Anxiety disorder, unspecified; I48.92 Unspecified atrial flutter; I48.0 Paroxysmal atrial fibrillation; I10 Essential (primary) hypertension; N20.0 Calculus of kidney; E03.9 Hypothyroidism, unspecified; E78.5 Hyperlipidemia, unspecified; Z79.01 Long term (current) use of anticoagulants; Z79.899 Other long term (current) drug therapy; R79.89 Other specified abnormal findings of blood chemistry
CPT/HCPCS: 36415; 74177; 80048; 80053; 81001; 83690; 83735; 85025; 96361; 96365; 96366; 96367; 96375; 96376; 99218; 99285; J7030; Q9967; A4216; G0378; J0744; J2405

== ENCOUNTER → 2021-02-12 11:35 | Outpatient (CLI) | payer OTHER, SELFPAY ==
[2021-02-12 15:44] LABS: Hematocrit 46.9 % (40-54); Hemoglobin 15.4 g/dL (13.0-16.5); Mean Corp Hgb Conc 32.8 g/dL (32-36); Mean Corpuscular Hgb 28.8 pg (27.0-32.0); Mean Corpuscular Volume 87.8 fL (80-94); Mean Platelet Vol. 11.2 fl (6.2-12.0); Platelet Count 170 K/mm3 (150-450); RBC Distribution Width CV 13.3 % (11.6-14.6); RBC Distribution Width SD 42.6 fl (35.1-43.9); Red Blood Count 5.34 M/mm3 (4.6-6.2); White Blood Count 5.4 K/mm3 (4.4-11.0)
[2021-02-12 15:53] LABS: Albumin, Serum 4.1 g/dL (3.2-5.0); BUN 23 mg/dL (7-18); BUN/Creat Ratio 16.5 RATIO (10-20); Calcium,Total 9.7 mg/dL (8.5-10.1); Chloride 101 mmol/L (98-107); Creatinine, Serum 1.39 mg/dL (0.70-1.30); EST Glomerular Filtration Rate 54 mL/min (>60); Est Glom Filt Rate - Afr Amer 66 mL/min (>60); Glucose 109 mg/dL (74-106); Magnesium 2.4 mg/dL (1.6-2.6); Potassium 4.2 mmol/L (3.5-5.1); Sodium Level 138 mmol/L (136-145); Vitamin D,25 Hydroxy 37.2 ng/mL
[2021-02-12 16:09] LABS: Microalbumin,Random Urine < 5.0 mg/L (NO RANGE EST.)
[2021-02-13 08:24] LABS: PTHIN 36.6 pg/mL (18.4-80.1)
== END ==
PROVIDERS: PCP Internal Medicine; Referring Provider Internal Medicine Nephrology; Visit Provider Internal Medicine Nephrology
DX: N18.31 Chronic kidney disease, stage 3a (principal); E55.9 Vitamin D deficiency, unspecified
CPT/HCPCS: 36415; 80069; 82043; 82306; 82570; 83735; 83970; 85027

== ENCOUNTER 2021-05-29 13:15 | Emergency (ER) | payer SELFPAY ==
[2021-05-29 13:16] VITALS: BP 141/92; PULSE 83; RESP 18; TEMP 36.7; O2SAT 95; BMI 28.0
[2021-05-29 14:07] VITALS: O2SAT 95
--- NOTE | 2021-05-29 14:07 | EKG12_ITS ---
Test Reason : CHEST OTHER Blood Pressure : / mmHG Vent. Rate : 070 BPM Atrial Rate : 070 BPM P-R Int : 194 ms QRS Dur : 130 ms QT Int : 410 ms P-R-T Axes : 029 -62 010 degrees QTc Int : 442 ms Normal sinus rhythm Left axis deviation Non-specific intra-ventricular conduction block Abnormal ECG Confirmed by CONG BRYAN, PERLA ([id number]), purchase request editor RAYMUNDO HUGHES ([id number]) on 05/30/2021 10:38:57 A M Referred By: ADRIENNE Confirmed By:VIRY GAR MD
--- NOTE | 2021-05-29 14:25 | RAD_ITS ---
STUDY: X-RAY CHEST REASON FOR EXAM: Male, 65 years old. Chest pain TECHNIQUE: Single AP portable view of the chest. COMPARISON: Comparison is made with prior study dated 08/25/2017. FINDINGS: EKG electrodes are seen. The lungs are clear and expanded. There is no demonstrated pleural abnormality. Normal size heart. Normal mediastinum and silvina. Normal visualized pulmonary arteries. There is atherosclerotic tortuosity of the aortic arch and descending thoracic aorta. There are diffuse degenerative changes of the visualized thoracic spine. Normal visualized ribs, clavicles, and shoulders. There is no demonstrated abnormality of the visualized soft tissue structures of the upper abdomen. RAD/Chest 1 View (Portable) IMPRESSION: No acute abnormality is seen. Electronically Signed: Silver Sandoval MD at 14:46 EST ,
[2021-05-29 14:37] LABS: Absolute Neutrophil Count 4.4 X10^3/uL (2.0-7.7); Basophil# 0.04 X10^3/uL; Basophil% 0.7 % (0-1); Eosinophil# 0.07 X10^3/uL; Eosinophils% 1.2 % (0-5); Hematocrit 45.2 % (40-54); Hemoglobin 15.2 g/dL (13.0-16.5); Lymphocyte % 13.5 % (19-41); Mean Corp Hgb Conc 33.6 g/dL (32-36); Mean Corpuscular Hgb 29.2 pg (27.0-32.0); Mean Corpuscular Volume 86.9 fL (80-94); Mean Platelet Vol. 11.2 fl (6.2-12.0); Monocyte# 0.54 X10^3/uL; Monocyte% 9.1 % (0-10); NRBC Flagged by Analyzer 0 % (0-5); Neutrophil # 4.44 X10^3/uL (2.7-7.7); Platelet Count 201 K/mm3 (150-450); RBC Distribution Width CV 13.1 % (11.6-14.6); RBC Distribution Width SD 41.5 fl (35.1-43.9); White Blood Count 5.9 K/mm3 (4.4-11.0)
[2021-05-29 14:52] LABS: Anion Gap 7 (5-15); BUN 20 mg/dL (7-18); BUN/Creat Ratio 13.6 RATIO (10-20); Calcium,Total 9.1 mg/dL (8.5-10.1); Chloride 103 mmol/L (98-107); Creatinine, Serum 1.47 mg/dL (0.70-1.30); EST Glomerular Filtration Rate 51 mL/min (>60); Est Glom Filt Rate - Afr Amer 62 mL/min (>60); Estimated Creatinine Clearance 56.62 ml/min; Glucose 151 mg/dL (74-106); Potassium 3.8 mmol/L (3.5-5.1); Sodium Level 138 mmol/L (136-145); Troponin-I HS 6 pg/mL (3.0-78.0)
--- NOTE | 2021-05-29 15:02 | ED.VIS.CHEST ---
HPI History of Present Illness Chief Complaint: Chest Other Narrative Narrative: Patient admits to cough and cold symptoms for about 2 weeks. He denies fever. He states he has been coughing a lot. He did a home test for COVID-19 and this was negative about a week and a half ago. The coughing has caused him to have some sharp chest pain in the left upper chest wall, however the patient is anticoagulated on Xarelto due to history of atrial flutter. He states that this hurts when he takes a deep breath and when he coughs. Patient has been eating and drinking normally. Is making normal urine and stool. He states his cough is improving. He does not feel short of breath. He denies black or bloody stools. PFSH PFSH Medical History Anxiety Atrial fibrillation Chest pain Hypertension Irregular heart beat Kidney stones Non-smoker Home Medications metoprolol succinate 50 mg PO QHS 06/06/16 [History Last Taken 07/24/16] Xarelto 20 mg PO DAILY #30 tablet 06/22/16 [Rx Last Taken 07/24/16] multivitamin [Daily Multiple] 1 ea PO DAILY 07/11/16 [History Last Taken 07/10/16] atorvastatin 20 mg tablet 20 mg PO QHS #90 tab 07/13/17 [Rx Last Taken Unknown] diltiazem HCl 120 mg PO DAILY 08/25/17 [History Last Taken Unknown] enalapril maleate 20 mg PO BID 08/25/17 [History Last Taken Unknown] flecainide 100 mg BID 08/25/17 [History Last Taken Unknown] hydrochlorothiazide 25 mg DAILY 08/25/17 [History Last Taken Unknown] levothyroxine 25 mcg PO DAILY 08/25/17 [History Last Taken Unknown] ciprofloxacin HCl 500 mg PO BID #10 tab 09/28/20 [Rx Last Taken Unknown] metronidazole [Flagyl] 500 mg PO TID #15 tab 09/28/20 [Rx Last Taken Unknown] oxycodone 5 mg PO Q4H PRN PRN 5 Days #20 tab 09/28/20 [Rx Last Taken Unknown] lidocaine [Lidoderm] 1 patch TOPICAL DAILY #1 ea 05/29/21 [Rx Last Taken Unknown] Allergy/AdvReac Type Severity Reaction Status Date / Time No Known Allergies Allergy Verified 05/29/21 13:18 Family History Other Cancer Heart disease Surgical History History of cataract surgery Previous back surgery Social History Smoking Status: Never smoker ROS ROS ED Constitutional Constitutional ED: Denies fever(s) or sweats Eyes Eyes: Denies blurry vision or change in vision ENT ENT ED: Reports rhinorrhea Cardiovascular Cardiovascular: Reports as per HPI Respiratory/Chest Respiratory/Chest: Reports cough Gastrointestinal Gastrointestinal: Denies abdominal pain, nausea or vomiting Genitourinary Genitourinary ED: Denies dysuria or hematuria Musculoskeletal Musculoskeletal: Denies arthralgias or myalgias Integumentary Denies rash Neurologic Neurologic: Denies headache(s), paresthesias or weakness Psychiatric Psychiatric: Denies anxiety or depression EXAM Physical Exam Const Vital Signs: 05/29/21 13:16 05/29/21 13:32 05/29/21 14:07 Temperature 98.1 F Temperature Source Temporal Pulse Rate 83 Respiratory Rate 18 Respiratory Effort Short of Breath Blood Pressure 141/92 H Blood Pressure Mean 108 Pulse Ox 95 95 Oxygen Delivery Method Room Air Room Air 05/29/21 15:32 05/29/21 16:34 Temperature Temperature Source Pulse Rate 66 76 Respiratory Rate 18 15 Respiratory Effort Blood Pressure 129/86 H 133/87 H Blood Pressure Mean 100 Pulse Ox 94 95 Oxygen Delivery Method Room Air Positive well developed General Appearance ED: well developed and NAD; Negative for pallor HEENT Reports moist mucous membranes normocephalic and atraumatic Eyes PERRL and EOMs intact bilaterally Chest Wall Chest Narrative: Tenderness to palpation of the left upper chest wall laterally. No crepitance. No ecchymosis or rash. Equal symmetric breath sounds and chest wall rise. Resp normal respiratory effort Effort and Inspection: respiratory distress Cardio regular rate and regular rhythm GI normal to inspection, nondistended, normoactive bowel sounds Extremity normal to inspection General Extremety ED: Negative for edema or tenderness General Extremity: Negative for edema Neuro oriented x3 Sensorium / Orientation: awake and alert Psych mental status grossly normal Skin General Skin Exam: Negative for jaundice or pallor Heart Score History: Slightly/Non-Suspicious ECG: Normal Age: >/= 65 years Risk Factors: 1 or 2 Risk Factors Troponin: >1 - <3 Normal Limit Score: 4 MDM MDM MDM Narrative Medical decision making narrative: Obtained an EKG which is a sinus rhythm with a ventricular to 70 bpm on my interpretation. Chest x-ray lower lobe interpreted shows no acute cardiopulmonary process and radiologist agree. CBC shows no leukocytosis. Hemoglobin hematocrit are stable. Platelets are normal. Creatinine 1.47 and near baseline. Electrolytes are within normal limits. High-sensitivity troponin is 6 initially and the delta troponin at 2 hours is also 6. Patient is anticoagulated so I do not have concern for PE. Since his cardiac work-up is negative I feel he is stable to be discharged home. He will be given follow-up with his primary care provider. He is given return cautions. Impression: 1. Chest pain 2. Dyspnea Lab Data Attestation: I reviewed the patient's lab results. Labs: Laboratory Results - last 24 hr 05/29/21 05/29/21 05/29/21 13:28 13:28 15:56 WBC 5.9 RBC 5.20 Hgb 15.2 Hct 45.2 MCV 86.9 MCH 29.2 MCHC 33.6 RDW Std Deviation 41.5 RDW Coeff of Ollie 13.1 Plt Count 201 MPV 11.2 Immature Gran % (Auto) 0.500 Neut % (Auto) 75.0 H Lymph % (Auto) 13.5 L [place]away % (Auto) 9.1 Eos % (Auto) 1.2 Baso % (Auto) 0.7 Absolute Neuts (auto) 4.4 Absolute Lymphs (auto) 0.80 L Nucleated RBC % 0 Sodium 138 Potassium 3.8 Chloride 103 Carbon Dioxide 28.0 Anion Gap 7 BUN 20 H Creatinine 1.47 H Estim Creat Clear Calc 56.62 Est GFR (MDRD) Af Amer 62 Est GFR (MDRD) Non-Af 51 L BUN/Creatinine Ratio 13.6 Glucose 151 H Calcium 9.1 Troponin I High Sens 6 6 Radiography Diagnostic Testing: Clinical Impression(s) from Imaging Studies Chest X-Ray 05/29/21 14:25 IMPRESSION: No acute abnormality is seen. Electronically Signed: Silver Sandoval MD at 14:46 EST , Discharge Plan Triage Chief Complaint: Chest Other ED Provider: Gigi Agosto Dx/Rx/DC Orders Instructions: ED Chest Pain, Noncardiac Prescriptions: New lidocaine [Lidoderm] 5 % adhesive patch,medicated 1 patch topical DAILY Qty: 1 RF: 0 No Action metoprolol succinate 100 MG tablet extended release 24 hr 50 mg PO QHS RF: 0 Xarelto 20 MG tablet 20 mg PO DAILY Qty: 30 RF: 0 multivitamin [Daily Multiple] 1 EACH tablet 1 ea PO DAILY RF: 0 enalapril maleate 20 MG tablet 20 mg PO BID RF: 0 levothyroxine 25 MCG tablet 25 mcg PO DAILY RF: 0 flecainide 100 MG tablet 100 mg BID RF: 0 hydrochlorothiazide 25 MG tablet 25 mg DAILY RF: 0 diltiazem HCl 360 MG capsule,extended release 24 hr 120 mg PO DAILY RF: 0 ciprofloxacin HCl 500 mg tablet 500 mg PO BID Qty: 10 RF: 0 metronidazole [Flagyl] 500 mg tablet 500 mg PO TID Qty: 15 RF: 0 oxycodone 5 mg Tablet 5 mg PO Q4H PRN PRN (Reason: Pain Score 4-5) 5 Days Qty: 20 RF: 0 atorvastatin 20 mg tablet 20 mg PO QHS Qty: 90 RF: 3 Primary Care Provider: Ameena Renee Referrals: Ameena Renee DO [Primary Care Provider] - Disposition Disposition: Home, Self Care Discharge Date/Time: 05/29/21 16:43
[2021-05-29 15:32] VITALS: BP 129/86; PULSE 66; RESP 18; O2SAT 94
[2021-05-29 16:21] LABS: Troponin-I HS 6 pg/mL (3.0-78.0)
[2021-05-29 16:34] VITALS: BP 133/87; PULSE 76; RESP 15; O2SAT 95
[2021-05-29] MEDS: Lidocaine 5% Patch 1 PATCH TOPICAL (16:39)
== END 2021-05-29 16:43 | disposition home or self-care (01) ==
PROVIDERS: Emergency Provider Student in an Organized Health Care Education/Training Program; PCP Internal Medicine; Visit Provider Student in an Organized Health Care Education/Training Program
DX: R07.9 Chest pain, unspecified (principal); I48.91 Unspecified atrial fibrillation; R06.00 Dyspnea, unspecified; I10 Essential (primary) hypertension; Z79.01 Long term (current) use of anticoagulants; Z79.890 Hormone replacement therapy; Z79.899 Other long term (current) drug therapy
CPT/HCPCS: 71045; 80048; 84484; 85025; 93005; 99284; A4216

== ENCOUNTER 2022-03-19 08:02 | Emergency (ER) | payer OTHER, SELFPAY ==
[2022-03-19 08:03] VITALS: BP 116/80; PULSE 78; RESP 17; TEMP 36.7; O2SAT 97; BMI 28.5
[2022-03-19 08:05] VITALS: BP 114/83; PULSE 70; RESP 18; TEMP 36.4; O2SAT 95
--- NOTE | 2022-03-19 08:13 | RAD_ITS ---
STUDY: X-RAY - LEFT FOOT CLINICAL: Male, 66 years old. Pain and swelling following injury. TECHNIQUE: 3 view(s) of the foot. COMPARISON: None. FINDINGS: There is a plantar calcaneal spur. Normal visualized subtalar, talonavicular, calcaneocuboid, tarsal and tarsometatarsal articulations. Normal metatarsi. Normal metatarsophalangeal joint of the great toe. Normal tibial and fibular sesamoid bones. Normal interphalangeal joint of the great toe. Normal phalanges of the great toe. Normal second through fifth metatarsophalangeal joints. Normal interphalangeal joints and phalanges of the lesser toes. The soft tissue structures are unremarkable. RAD/Foot min 3 Views IMPRESSION: Calcaneal spur. Electronically Signed: Silver Sandoval MD at 9:08 EST ,
--- NOTE | 2022-03-19 08:15 | EDS_ITS ---
HPI History of Present Illness Chief Complaint: Cellulitis Narrative Narrative: 66-year-old male past medical history of atrial fibrillation and flutter status post ablations x2 remotely, hypertension, presents with left foot pain that began yesterday evening. 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 As he was driving home, he had pain in his left foot that was worse with movement, weightbearing, and walking. He denies any chest pain or new shortness of breath, stating that he is always been short of breath after his ablations. No fevers or chills. Tried to put ice on it and can only take Tylenol as he is not allowed to take other pain relievers. He denies any injury to his left foot. No history of gout. He complains of pain all across the dorsum of his left foot. Given his history of atrial fibrillation and flutter he does take Xarelto as a blood thinner. [facility] Medical History (Updated 03/19/22 @ 09:25 by Jhonatan Alvarado MD) Allergies Anxiety Arthritis Atrial fibrillation Back problem Cataracts, bilateral Chest pain Frequent headaches High triglycerides Hypertension Irregular heart beat Kidney stones New onset atrial flutter with RVR Non-smoker Thyroid disease Vision problems Home Medications metoprolol succinate 100 mg tablet,extended release 24 hr 25 mg PO QHS blood pressure 06/06/16 [History Last Taken 07/24/16] rivaroxaban 20 mg tablet (Xarelto) 20 mg PO DAILY #30 TABLETS 06/22/16 [Rx Last Taken 07/24/16] multivitamin (Daily Multiple tablet) 1 ea PO DAILY vitamin 07/11/16 [History Last Taken 07/10/16] atorvastatin 20 mg tablet 20 mg PO QHS #90 tabs 07/13/17 [Rx Last Taken Unknown] diltiazem HCl 360 mg capsule,24 hr,extended release 120 mg PO DAILY heart rate 08/25/17 [History Last Taken Unknown] enalapril maleate 20 mg tablet 20 mg PO BID blood pressure 08/25/17 [History Last Taken Unknown] flecainide 100 mg tablet 50 mg BID heart rate 08/25/17 [History Last Taken Unknown] hydrochlorothiazide 25 mg tablet 20 mg BID diuretic 08/25/17 [History Last Taken Unknown] levothyroxine 25 mcg tablet 25 mcg PO DAILY thyroid 08/25/17 [History Last Taken Unknown] cholecalciferol (vitamin D3) 50 mcg (2,000 unit) tablet (Vitamin D3) 50 mcg PO DAILY 07/16/21 [History Last Taken Unknown] cephalexin 500 mg capsule 500 mg PO TID #21 caps 03/19/22 [Rx Last Taken Unknown] oxycodone 5 mg tablet 5 mg PO Q8H PRN pain 3 days #10 tabs 03/19/22 [Rx Last Taken Unknown] Allergy/AdvReac Type Severity Reaction Status Date / Time No Known Allergies Allergy Verified 03/19/22 08:02 Family History Brother Arthritis Sister Arthritis Father Heart disease Hypertension Mother Breast cancer Other Cancer Surgical History (Updated 03/19/22 @ 08:33 by Cherie Saavedra) Atrial fibrillation and flutter H/O left knee surgery History of cataract surgery Previous back surgery Social History Smoking Status: Never smoker alcohol intake: never substance use type: does not use additional social history: Does Not Take Aspirin Does Not Take Ibuprofen ROS ROS ED ROS Narrative Constitutional: No fever, no chills. HEENT: No sore throat. No neck pain. No loss of vision. No rhinorrhea. Cardiovascular: No chest pain. No palpitations. No pedal edema. Respiratory: No cough, no shortness of breath. Abdominal: No abdominal pain. No nausea. No vomiting. Genitourinary: No dysuria. No hematuria. Musculoskeletal: No myalgias. Left foot pain across dorsum of foot worse with movement especially flexion and dorsiflexion of foot. Neurologic: No headaches. No dizziness. No lightheadedness. Skin: No rash. No change in color. Psychiatric: No depression. No anxiety. EXAM Physical Exam Narrative Exam Narrative: Afebrile. Vital signs noted. HEENT: Normocephalic. Atraumatic. PERRL, EOMI. Neck soft and supple. No point tenderness or step off. Cardiovascular: Regular rate and rhythm. No murmurs, rubs, or gallops appreciated. Respiratory: No tachypnea. Lungs clear to auscultation bilaterally. Gastrointestinal: Abdomen soft, nontender, with normoactive bowel sounds. No rebound or guarding. Neurological: Awake. Alert. Nonfocal, nonlateralizing. Skin: No rash. Normal color. No pallor. Musculoskeletal: No pedal edema. Mild tenderness to palpation with minimal erythema and swelling across dorsum of foot/tarsal bones. Palpable dorsalis pedis pulse. No circumferential swelling. Const Vital Signs: 03/19/22 08:03 03/19/22 08:05 03/19/22 09:05 Temperature 98.0 F 97.6 F L 97.8 F Temperature Source Temporal Temporal Temporal Pulse Rate 78 70 72 Respiratory Rate 17 18 16 Blood Pressure 116/80 114/83 H 112/69 Blood Pressure Mean 92 93 83 Pulse Ox 97 95 95 Oxygen Delivery Method Room Air Room Air Room Air 03/19/22 09:50 Temperature 98.0 F Temperature Source Pulse Rate 68 Respiratory Rate 16 Blood Pressure 114/82 H Blood Pressure Mean Pulse Ox 95 Oxygen Delivery Method MDM MDM MDM Narrative Medical decision making narrative: I do feel that this may be more arthritis. I discussed with the patient that I do not feel an ultrasound is indicated as his pain is localized to the dorsum of his foot, and he is already taking Xarelto which is the treatment for DVT. Even if he had a superficial thrombophlebitis from varicose veins or DVT, he is already on treatment, and additionally it would be below the knee. I do feel there is more of an arthritic component to this. He was given 1 Novi tablet here for analgesia. He states he cannot take NSAIDs or steroids. My interpretation of his x-ray of the foot shows no evidence of acute fracture. I do not appreciate soft tissue swelling. At this point in time, he will be treated as a cellulitis. He does have some dry, cracked skin on his foot which may have been the portal of entry. He was given crutches because he states he is unable to weight-bear on his left foot. Additionally, he was written a prescription for Keflex to take 3 times a day for the next week. He will follow-up with his primary care physician. He was also given a prescription for oral analgesics as he states he is unable to take NSAIDs secondary to medication interaction. I feel he can be discharged safely home. Return instructions to the emergency department were reviewed. Disposition is discharged home in stable condition. Radiography Diagnostic Testing: Clinical Impression(s) from Imaging Studies Foot X-Ray 03/19/22 08:13 IMPRESSION: Calcaneal spur. Electronically Signed: Silver Sandoval MD at 9:08 EST , Discharge Plan Triage Chief Complaint: Cellulitis ED Provider: Jhonatan Alvarado Dx/Rx/DC Orders Clinical Impression: Cellulitis, Foot pain, left Instructions: ED Cellulitis Prescriptions: New oxycodone 5 mg tablet 5 mg PO Q8H PRN (Reason: pain) 3 Days Qty: 10 0RF cephalexin 500 mg capsule 500 mg PO TID Qty: 21 0RF No Action cholecalciferol (vitamin D3) [Vitamin D3] 50 mcg (2,000 unit) tablet 50 mcg PO DAILY metoprolol succinate 100 MG tablet extended release 24 hr 25 mg PO QHS Label Comments: blood pressure/heart Xarelto 20 MG tablet 20 mg PO DAILY Qty: 30 0RF Label Comments: blood thinner multivitamin [Daily Multiple] 1 EACH tablet 1 ea PO DAILY Label Comments: supplement enalapril maleate 20 MG tablet 20 mg PO BID Label Comments: levothyroxine 25 MCG tablet 25 mcg PO DAILY Label Comments: TAKE ONE TABLET BY MOUTH DAILY flecainide 100 MG tablet 50 mg BID Label Comments: Take 1 (one) tablet (100 mg total) by mouth 2 (two) times a day. hydrochlorothiazide 25 MG tablet 20 mg BID Label Comments: diltiazem HCl 360 MG capsule,extended release 24 hr 120 mg PO DAILY Label Comments: heart atorvastatin 20 mg tablet 20 mg PO QHS Qty: 90 3RF Label Comments: cholesterol Primary Care Provider: Ameena Renee Referrals: Marcellus Anderson DPM [Med Staff - Active Staff] - 3-5 Days if not improving Ameena Renee DO [Primary Care Provider] - 3-5 Days if not improving Disposition Disposition: Home, Self Care Discharge Date/Time: 03/19/22 09:50
[2022-03-19] MEDS: HYDROcodone Bitartrate/Apap 5/325 Tablet PO (08:25)
[2022-03-19 09:05] VITALS: BP 112/69; PULSE 72; RESP 16; TEMP 36.6; O2SAT 95
[2022-03-19] MEDS: Cephalexin 250 MG Capsule 500 MG PO (09:41)
[2022-03-19 09:50] VITALS: BP 114/82; PULSE 68; RESP 16; TEMP 36.7; O2SAT 95
== END 2022-03-19 09:50 | disposition home or self-care (01) ==
PROVIDERS: Emergency Provider Emergency Medicine; PCP Internal Medicine; Visit Provider Emergency Medicine
DX: L03.116 Cellulitis of left lower limb (principal); I48.91 Unspecified atrial fibrillation; M79.672 Pain in left foot; I10 Essential (primary) hypertension; F41.9 Anxiety disorder, unspecified; Z79.899 Other long term (current) drug therapy; Z79.01 Long term (current) use of anticoagulants
CPT/HCPCS: 73630; 99284

== ENCOUNTER → 2022-07-24 | Outpatient (CLI) | payer OTHER, SELFPAY ==
[2022-07-24 10:24] LABS: Bacteria 0 SEEN /hpf (None Seen); Mucous, Urine 0 SEEN /hpf (<or=2+); Red Blood Cells-Urine 0 SEEN /hpf (0-5); White Blood Cells 0 SEEN /hpf (0-5)
[2022-07-24 12:21] LABS: Absolute Lymphocyte Count 0.95 X10^3/uL (0.83-4.51); Absolute Neutrophil Count 4.2 X10^3/uL (2.0-7.7); Basophil# 0.03 X10^3/uL; Basophil% 0.5 % (0-1); Eosinophil# 0.04 X10^3/uL; Eosinophils% 0.7 % (0-5); Hematocrit 48.1 % (40-54); Hemoglobin 16.2 g/dL (13.0-16.5); Lymphocyte # 0.95 X10^3/ul (0.83-4.51); Lymphocyte % 16.6 % (19-41); Mean Corp Hgb Conc 33.7 g/dL (32-36); Mean Corpuscular Hgb 29.6 pg (27.0-32.0); Mean Corpuscular Volume 87.9 fL (80-94); Mean Platelet Vol. 11.4 fl (6.2-12.0); Monocyte# 0.52 X10^3/uL; Monocyte% 9.1 % (0-10); NRBC Flagged by Analyzer 0 % (0-5); Neutrophil # 4.16 X10^3/uL (2.7-7.7); Neutrophil % 72.6 % (47-70); Platelet Count 194 K/mm3 (150-450); RBC Distribution Width CV 13.8 % (11.6-14.6); RBC Distribution Width SD 44.4 fl (35.1-43.9); Red Blood Count 5.47 M/mm3 (4.6-6.2); White Blood Count 5.7 K/mm3 (4.4-11.0)
[2022-07-24 12:41] LABS: Color, Urine Straw (Yellow); Glucose, Dipstick Normal (Normal); Ketone-Dipstick Negative (Negative); Leukocyte Esterase-Dipstick Negative /ul (Negative); Nitrite-Dipstick Negative (Negative); Occult Blood-Urine Negative /ul (Negative); Protein-Dipstick Negative (Negative); Urine Bilirubin Dipstick Negative (Negative); Urine Clarity Clear (Clear); Urine Urobilinogen Normal (Normal)
[2022-07-24 12:52] LABS: PTHIN 32.5 pg/mL (18.4-80.1); Squamous Epithelial Cells - UA 0-5 SEEN /hpf (0-5)
[2022-07-24 13:03] LABS: ALB/GLOB Ratio 1.4 RATIO (0.9-2.4); AST(SGOT) 34 U/L (15-37); Alanine Aminotransfer ALT/SGPT 43 U/L (16-61); Albumin, Serum 4.3 g/dL (3.2-5.0); Alkaline Phosphatase 67 U/L (45-117); Anion Gap 5 (5-15); BUN 24 mg/dL (7-18); Chloride 103 mmol/L (98-107); Cholesterol 140 mg/dL (200); Creatinine, Serum 1.41 mg/dL (0.70-1.30); EST Glomerular Filtration Rate 53 mL/min (>60); Est Glom Filt Rate - Afr Amer 65 mL/min (>60); Globulin 3.1 g/dL (2.2-4.2); Glucose 111 mg/dL (74-106); High Density Lipoprotein 42 mg/dL; Magnesium 2.1 mg/dL (1.6-2.6); Microalbumin,Random Urine 12.8 mg/L (NO RANGE EST.); Microalbumin:Creatinine Ratio 17.6 mg/g CRE (<30 mg/g CRE); PSA,Total - Annual Screen 0.62 ng/mL (0.00-4.00); Phosphorus 3.1 mg/dL (2.5-4.9); Potassium 3.9 mmol/L (3.5-5.1); Protein, Total 7.4 g/dL (6.4-8.2); Sodium Level 136 mmol/L (136-145); Thyroid Stim Hormone (TSH) 1.74 uIU/mL (0.358-3.74); Triglycerides 210 mg/dL; Very Low Density Lipoprotein 42 mg/dL (5-40)
== END | disposition home or self-care (01) ==
LOC: MTLAB 10:11
PROVIDERS: PCP Internal Medicine; Referring Provider Internal Medicine; Visit Provider Internal Medicine
DX: N18.31 Chronic kidney disease, stage 3a (principal); E55.9 Vitamin D deficiency, unspecified; E03.9 Hypothyroidism, unspecified; I11.9 Hypertensive heart disease without heart failure; Z12.11 Encounter for screening for malignant neoplasm of colon; Z12.5 Encounter for screening for malignant neoplasm of prostate
CPT/HCPCS: 36415; 80053; 80061; 81001; 82043; 82306; 82570; 83735; 83970; 84100; 84153; 84443; 85025; G0103

== ENCOUNTER → 2022-07-30 | Outpatient (CLI) | payer OTHER, SELFPAY ==
[2022-07-30 17:57] LABS: Anion Gap 5 (5-15); BUN 24 mg/dL (7-18); Calcium,Total 9.9 mg/dL (8.5-10.1); Chloride 103 mmol/L (98-107); Creatinine, Serum 1.33 mg/dL (0.70-1.30); EST Glomerular Filtration Rate 57 mL/min (>60); Est Glom Filt Rate - Afr Amer 69 mL/min (>60); Glucose 93 mg/dL (74-106); Potassium 3.7 mmol/L (3.5-5.1); Sodium Level 135 mmol/L (136-145)
== END | disposition home or self-care (01) ==
LOC: MTLAB 16:53
PROVIDERS: PCP Internal Medicine; Referring Provider Internal Medicine; Visit Provider Internal Medicine
DX: N18.31 Chronic kidney disease, stage 3a (principal)
CPT/HCPCS: 36415; 80048

== ENCOUNTER → 2022-10-08 | Outpatient (CLI) | payer OTHER, SELFPAY ==
[2022-10-08 13:22] LABS: Cholesterol 133 mg/dL (200); High Density Lipoprotein 60 mg/dL; Triglycerides 104 mg/dL; Very Low Density Lipoprotein 21 mg/dL (5-40)
== END | disposition home or self-care (01) ==
LOC: MTLAB 11:13
PROVIDERS: PCP Internal Medicine; Referring Provider Internal Medicine; Visit Provider Internal Medicine
DX: E78.1 Pure hyperglyceridemia (principal)
CPT/HCPCS: 36415; 80061

== ENCOUNTER 2022-11-03 20:41 | Emergency (ER) | payer OTHER, SELFPAY ==
[2022-11-03 20:42] VITALS: BP 135/90; PULSE 105; RESP 16; TEMP 36.6; BMI 28.1
--- NOTE | 2022-11-03 20:55 | EKG12_ITS ---
Test Reason : CP Blood Pressure : / mmHG Vent. Rate : 096 BPM Atrial Rate : 096 BPM P-R Int : 166 ms QRS Dur : 118 ms QT Int : 358 ms P-R-T Axes : 049 -73 052 degrees QTc Int : 452 ms Sinus rhythm with Premature supraventricular complexes Left axis deviation Incomplete left bundle branch block Abnormal ECG Confirmed by PRERNA BRYAN, HUDSON ([id number]), editor city RAYMUNDO HUGHES ([id number]) on 11/05/2022 9:32:59 AM Referred By: GEORGIE Confirmed By:HUDSON GRAFF MD
--- NOTE | 2022-11-03 21:01 | EDS_ITS ---
HPI History of Present Illness Chief Complaint: Chest Pain Detail of Chief Complaint: Right-sided chest pain with onset at 1700 Informant: patient and spouse/S.O. Onset/Context/Timing Onset: Today Activity at onset: sudden Timing: Continuous Quality: Positive for Sharp Location: Right Parasternal Current Severity: Mild Maximum Severity: Moderate Worsened By: Breathing Relieved By: Nothing Associated Symptoms: Negative for Nausea, Vomiting, Diaphoresis, Dyspnea, Cough, Fever, Lightheadedness, Acid Reflux or Palpitations Narrative Narrative: Patient is a 67-year-old male with history of hypertension, chronic kidney disease, thyroid disease, hypercholesterolemia and arthritis who presents with atraumatic right-sided chest pain with a pleuritic component that started at 1700. He denies shortness of breath. He denies history of VTE. He denies risk factors for VTE. He denies intolerance to greasy or fried foods. There is no family history of cholelithiasis. He does have a remote history of GERD. He is not on any medicine for GERD presently. He states this does not feel like his GERD, which she described as heartburn. This is a sharp discomfort that is wo rse with breathing. He denies leg pain, swelling discoloration. Denies black or maroon-colored stool. He was helping his son move something. He states that he was doing 10% of the work. There was no direct blow to his chest. Prior Similar Symptoms: No Recent Illness/Hospitalization: No CVD Risk Factors: Positive for Hypertension and Hypercholesterolemia; Negative for Family History 1' </=55 PE Risk Factors: Negative for Recent Travel/Surgery, Recent Immobilization, Prior DVT or PE, Cancer or OCP + Smoking + >/=35 TAD Risk Factors: Positive for Hypertension; Negative for Marfan's Syndrome or Family History [facility] Medical History Allergies Anxiety Arthritis Atrial fibrillation Back problem Cataracts, bilateral Chest pain Frequent headaches High triglycerides Hypertension Irregular heart beat Kidney stones New onset atrial flutter with RVR Non-smoker Thyroid disease Vision problems Home Medications metoprolol succinate 100 mg tablet,extended release 24 hr 25 mg PO QHS blood pressure 06/06/16 [History Last Taken 07/24/16] rivaroxaban 20 mg tablet (Xarelto) 20 mg PO DAILY #30 TABLETS 06/22/16 [Rx Last Taken 07/24/16] multivitamin (Daily Multiple tablet) 1 ea PO DAILY vitamin 07/11/16 [History Last Taken 07/10/16] atorvastatin 20 mg tablet 20 mg PO QHS #90 tabs 07/13/17 [Rx Last Taken Unknown] diltiazem HCl 360 mg capsule,24 hr,extended release 120 mg PO DAILY heart rate 08/25/17 [History Last Taken Unknown] enalapril maleate 20 mg tablet 20 mg PO BID blood pressure 08/25/17 [History Last Taken Unknown] flecainide 100 mg tablet 50 mg BID heart rate 08/25/17 [History Last Taken Unknown] hydrochlorothiazide 25 mg tablet 20 mg PO Q12H diuretic 08/25/17 [History Last Taken Unknown] levothyroxine 25 mcg tablet 25 mcg PO DAILY thyroid 08/25/17 [History Last Taken Unknown] cholecalciferol (vitamin D3) 50 mcg (2,000 unit) tablet (Vitamin D3) 50 mcg PO DAILY 07/16/21 [History Last Taken Unknown] cephalexin 500 mg capsule 500 mg PO TID #21 caps 03/19/22 [Rx Last Taken Unknown] oxycodone 5 mg tablet 5 mg PO Q8H PRN pain 3 days #10 tabs 03/19/22 [Rx Last Taken Unknown] prednisone 20 mg tablet 40 mg (2 x 20 mg) PO DAILY #8 tabs 11/04/22 [Rx Last Taken Unknown] Allergy/AdvReac Type Severity Reaction Status Date / Time No Known Allergies Allergy Verified 11/03/22 21:01 Family History Brother Arthritis Sister Arthritis Father Heart disease Hypertension Mother Breast cancer Other Cancer Surgical History Atrial fibrillation and flutter H/O left knee surgery History of cataract surgery Previous back surgery Social History Smoking Status: Never smoker alcohol intake: never substance use type: does not use additional social history: Does Not Take Aspirin Does Not Take Ibuprofen ROS ROS ED Constitutional Constitutional ED: Denies chills, fever(s), subjective, sweats or weight loss Eyes Eyes: Reports none ENT ENT ED: Denies ear pain, rhinorrhea or sore throat Cardiovascular Cardiovascular: Reports as per HPI; Denies orthopnea or paroxysmal nocturnal dyspnea Respiratory/Chest Respiratory/Chest: Denies cough, dyspnea, dyspnea on exertion, orthopnea or paroxysmal nocturnal dyspnea Gastrointestinal Gastrointestinal: Denies abdominal pain, constipation, diarrhea, melena, nausea or vomiting Genitourinary Genitourinary ED: Denies dysuria or hematuria Musculoskeletal Musculoskeletal: Denies arthralgias, back pain, myalgias or neck pain Integumentary Denies Abrasions or rash Neurologic Neurologic: Denies headache(s) or paresthesias Psychiatric Psychiatric: Denies anxiety or depression Endocrine Endocrinology: Denies cold intolerance, heat intolerance or polydipsia Hematologic/Lymphatic Hematologic/Lymphatic: Denies easy bleeding or easy bruising EXAM Physical Exam Const Vital Signs: 11/03/22 20:42 11/03/22 20:42 Temperature 97.8 F 97.8 F Temperature Source Temporal Temporal Pulse Rate 105 H 105 H Respiratory Rate 16 16 Blood Pressure 135/90 H 135/90 H Blood Pressure Mean 105 105 Positive well nourished and well developed General Appearance ED: well developed and NAD; Negative for pallor HEENT Reports TM's clear and moist mucous membranes normocephalic and atraumatic Tympanic Membrane ED: Yes TM's clear Eyes PERRL and EOMs intact bilaterally General Eye ED: Negative for pale conjunctiva or scleral icterus Neck no lymphadenopathy, supple and no JVD Chest Wall inspection of chest normal and palpation of chest normal Chest Narrative: There is no reproducible chest pain. There is no crepitus or subcutaneous air. Resp normal respiratory effort and clear to auscultation bilaterally Effort and Inspection: Negative for respiratory distress or pain with movement Cardio regular rate, regular rhythm, S2 normal heart sound and no murmurs GI normal to inspection, nondistended, normoactive bowel sounds, soft to palpation, non-tender, non-distended and no masses; Negative for hepatosplenomegaly Palpation: Negative for splenomegaly Back/Spine no CVA tenderness and no thoracic nor lumbar tenderness Cervical Spine: Negative for cervical spine tenderness Neuro oriented x3, CN's II-XII intact bilaterally and no sensory deficits noted Sensorium / Orientation: awake Psych mental status grossly normal Skin no rashes or lesions noted General Skin Exam: Negative for jaundice or pallor MDM MDM MDM Narrative Medical decision making narrative: Torrential diagnosis includes pleurisy, pneumonia, pulmonary embolus, doubt cardiac. EKG, chest x-ray, troponin, D-dimer, BMP and CBC were obtained. Prior records were reviewed. History & Record Review Additional record(s) reviewed:: Prior outpatient record, Prior ED visit, Prior labs and Other (Cardioversion for atrial flutter.) Lab Data Attestation: I reviewed the patient's lab results. Lab results narrative: CBC is unremarkable. Basic metabolic panel is unremarkable. First troponin is normal. D-dimer is normal. Second troponin is 8. Delta is 0. Labs: Laboratory Results - last 24 hr 11/03/22 11/03/22 21:05 23:20 WBC 6.4 RBC 5.38 Hgb 15.8 Hct 48.9 MCV 90.9 MCH 29.4 MCHC 32.3 RDW Std Deviation 45.8 H RDW Coeff of Ollie 13.6 Plt Count 150 MPV 11.2 Immature Gran % (Auto) 0.500 Neut % (Auto) 73.4 H Lymph % (Auto) 13.1 L [place] % (Auto) 10.8 H Eos % (Auto) 1.4 Baso % (Auto) 0.8 Absolute Neuts (auto) 4.7 Absolute Lymphs (auto) 0.83 Nucleated RBC % 0 D-Dimer Quant (PE/DVT) 0.37 Sodium 137 Potassium 4.2 Chloride 106 Carbon Dioxide 26.0 Anion Gap 5 BUN 22 H Creatinine 1.26 Estim Creat Clear Calc 64.29 Est GFR (MDRD) Af Amer 73 Est GFR (MDRD) Non-Af 61 BUN/Creatinine Ratio 17.5 Glucose 97 Calcium 10.8 H Troponin I High Sens 8 8 Radiography Chest X-Ray - ED: 2 View and Read by ED Physician (Minimal chronic changes atelectasis left lower base. Cardiac silhouette size normal. Perihilar region unremarkable. There is no effusion or infiltrate noted. Osseous structures are unremarkable. This independently reviewed interpreted by me at 2146.) Diagnostic Testing: Clinical Impression(s) from Imaging Studies Chest X-Ray 11/03/22 21:08 IMPRESSION: No definite acute or significant abnormality seen. Electronically Signed: Dale Trejo MD at 22:10 EDT , EKG Initial EKG: Attestation: I personally reviewed and interpreted this EKG as follows: Interpretation: Sinus Rhythm (Rate is 96. There are premature supraventricular complexes noted. AK interval is 166 ms per cures duration 118 ms. QT duration 358 ms. Is evidence of a left axis and incomplete left bundle branch block. There is no acute ischemic changes noted.) Treatment and Re-Evaluation :: Since patient has history of kidney disease we will treat his pleuritic pain with prednisone. Furthermore patient is on Xarelto. 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 Pleurisy Prescriptions: New prednisone 20 mg tablet 40 mg PO DAILY Qty: 8 0RF No Action cholecalciferol (vitamin D3) [Vitamin D3] 50 mcg (2,000 unit) tablet 50 mcg PO DAILY metoprolol succinate 100 MG tablet extended release 24 hr 25 mg PO QHS Patient Comments: blood pressure/heart Xarelto 20 MG tablet 20 mg PO DAILY Qty: 30 0RF Patient Comments: blood thinner multivitamin [Daily Multiple] 1 EACH tablet 1 ea PO DAILY Patient Comments: supplement enalapril maleate 20 MG tablet 20 mg PO BID Patient Comments: levothyroxine 25 MCG tablet 25 mcg PO DAILY Patient Comments: TAKE ONE TABLET BY MOUTH DAILY flecainide 100 MG tablet 50 mg BID Patient Comments: Take 1 (one) tablet (100 mg total) by mouth 2 (two) times a day. hydrochlorothiazide 25 MG tablet 20 mg PO Q12H Patient Comments: diltiazem HCl 360 MG capsule,extended release 24 hr 120 mg PO DAILY Patient Comments: heart oxycodone 5 mg tablet 5 mg PO Q8H PRN (Reason: pain) 3 Days Qty: 10 0RF cephalexin 500 mg capsule 500 mg PO TID Qty: 21 0RF atorvastatin 20 mg tablet 20 mg PO QHS Qty: 90 3RF Patient Comments: cholesterol Primary Care Provider: Ameena Renee Referrals: Ameena Renee DO [Primary Care Provider] - 3-5 Days if not improving Disposition Disposition: Home, Self Care
--- NOTE | 2022-11-03 21:08 | RAD_ITS ---
STUDY: X-RAY CHEST REASON FOR EXAM: Male, 67 years old. Right-sided chest pain with pleuritic component TECHNIQUE: Frontal and lateral views of the chest. COMPARISON: None. FINDINGS: The lungs are clear and expanded. There is no demonstrated pleural abnormality. Normal size heart. Normal mediastinum and silvina. Normal visualized pulmonary arteries. Normal visualized aortic arch and descending thoracic aorta. There are diffuse degenerative changes of the visualized thoracic spine. Normal visualized ribs, clavicles, and shoulders. There is no demonstrated abnormality of the visualized soft tissue structures of the upper abdomen. RAD/Chest PA and Lateral IMPRESSION: No definite acute or significant abnormality seen. Electronically Signed: Dale Trejo MD at 22:10 EDT ,
[2022-11-03 21:28] LABS: Absolute Lymphocyte Count 0.83 X10^3/uL (0.83-4.51); Absolute Neutrophil Count 4.7 X10^3/uL (2.0-7.7); Basophil# 0.05 X10^3/uL; Basophil% 0.8 % (0-1); Eosinophil# 0.09 X10^3/uL; Eosinophils% 1.4 % (0-5); Hematocrit 48.9 % (40-54); Hemoglobin 15.8 g/dL (13.0-16.5); Lymphocyte # 0.83 X10^3/ul (0.83-4.51); Lymphocyte % 13.1 % (19-41); Mean Corp Hgb Conc 32.3 g/dL (32-36); Mean Corpuscular Hgb 29.4 pg (27.0-32.0); Mean Corpuscular Volume 90.9 fL (80-94); Mean Platelet Vol. 11.2 fl (6.2-12.0); Monocyte# 0.69 X10^3/uL; Monocyte% 10.8 % (0-10); NRBC Flagged by Analyzer 0 % (0-5); Neutrophil # 4.67 X10^3/uL (2.7-7.7); Neutrophil % 73.4 % (47-70); Platelet Count 150 K/mm3 (150-450); RBC Distribution Width CV 13.6 % (11.6-14.6); RBC Distribution Width SD 45.8 fl (35.1-43.9); Red Blood Count 5.38 M/mm3 (4.6-6.2); White Blood Count 6.4 K/mm3 (4.4-11.0)
[2022-11-03 21:35] LABS: D-Dimer Quantitative (DVT/PE) 0.37 FEU/ug/m (0.27-0.49)
[2022-11-03 21:50] LABS: Anion Gap 5 (5-15); BUN 22 mg/dL (7-18); BUN/Creat Ratio 17.5 RATIO (10-20); Calcium,Total 10.8 mg/dL (8.5-10.1); Chloride 106 mmol/L (98-107); Creatinine, Serum 1.26 mg/dL (0.70-1.30); EST Glomerular Filtration Rate 61 mL/min (>60); Est Glom Filt Rate - Afr Amer 73 mL/min (>60); Estimated Creatinine Clearance 64.29 ml/min; Glucose 97 mg/dL (74-106); Potassium 4.2 mmol/L (3.5-5.1); Sodium Level 137 mmol/L (136-145); Troponin-I HS (w/2H Reflex) 8 pg/mL (3.0-78.0)
[2022-11-03 23:08] LABS: Reflex Troponin-HS? (from REC) Y
[2022-11-03 23:55] LABS: Troponin-I HS 8 pg/mL (3.0-78.0)
[2022-11-04] MEDS: predniSONE 20 MG Tablet 40 MG PO (00:13)
[2022-11-04 00:15] VITALS: RESP 16
== END 2022-11-04 00:16 | disposition home or self-care (01) ==
PROVIDERS: Emergency Provider Emergency Medicine; PCP Internal Medicine; Visit Provider Emergency Medicine
DX: R07.81 Pleurodynia (principal); I48.91 Unspecified atrial fibrillation; I12.9 Hypertensive chronic kidney disease with stage 1 through stage 4 chronic kidney disease, or unspecified chronic kidney disease; N18.9 Chronic kidney disease, unspecified; E78.00 Pure hypercholesterolemia, unspecified; M19.90 Unspecified osteoarthritis, unspecified site; E07.9 Disorder of thyroid, unspecified; R00.0 Tachycardia, unspecified; Z79.01 Long term (current) use of anticoagulants; Z79.890 Hormone replacement therapy; Z79.899 Other long term (current) drug therapy
CPT/HCPCS: 71046; 80048; 84484; 85025; 85379; 93005; 99284; A4216

== ENCOUNTER → 2023-01-15 | Outpatient (CLI) | payer OTHER, SELFPAY ==
[2023-01-15 12:33] LABS: Hematocrit 47.8 % (40-54); Hemoglobin 15.2 g/dL (13.0-16.5); Mean Corp Hgb Conc 31.8 g/dL (32-36); Mean Corpuscular Hgb 28.6 pg (27.0-32.0); Mean Platelet Vol. 11.4 fl (6.2-12.0); Platelet Count 205 K/mm3 (150-450); RBC Distribution Width CV 13.5 % (11.6-14.6); Red Blood Count 5.31 M/mm3 (4.6-6.2); White Blood Count 6.7 K/mm3 (4.4-11.0)
[2023-01-15 12:51] LABS: PTHIN 30.7 pg/mL (18.4-80.1)
[2023-01-15 12:53] LABS: Vitamin D,25 Hydroxy 51.2 ng/mL
[2023-01-15 13:23] LABS: BUN 16 mg/dL (7-18); BUN/Creat Ratio 13.6 RATIO (10-20); Calcium,Total 9.2 mg/dL (8.5-10.1); Chloride 102 mmol/L (98-107); Creatinine, Serum 1.18 mg/dL (0.70-1.30); EST Glomerular Filtration Rate 65 mL/min (>60); Est Glom Filt Rate - Afr Amer 79 mL/min (>60); Glucose 106 mg/dL (74-106); Magnesium 2.7 mg/dL (1.6-2.6); Phosphorus 3.1 mg/dL (2.5-4.9); Potassium 3.7 mmol/L (3.5-5.1); Sodium Level 136 mmol/L (136-145)
[2023-01-15 14:52] LABS: Microalbumin,Random Urine 38.3 mg/L (NO RANGE EST.); Microalbumin:Creatinine Ratio 30.2 mg/g CRE (<30 mg/g CRE)
== END | disposition home or self-care (01) ==
PROVIDERS: PCP Internal Medicine; Referring Provider Internal Medicine Nephrology; Visit Provider Internal Medicine Nephrology
DX: I12.9 Hypertensive chronic kidney disease with stage 1 through stage 4 chronic kidney disease, or unspecified chronic kidney disease (principal); N18.31 Chronic kidney disease, stage 3a
CPT/HCPCS: 36415; 80069; 82043; 82306; 82570; 83735; 83970; 85027

== ENCOUNTER → 2023-06-15 | Outpatient (CLI) | payer OTHER, SELFPAY ==
[2023-06-15 12:51] LABS: Hematocrit 47.8 % (40-54); Hemoglobin 15.8 g/dL (13.0-16.5); Mean Corp Hgb Conc 33.1 g/dL (32-36); Mean Corpuscular Hgb 29.4 pg (27.0-32.0); Mean Platelet Vol. 11.5 fl (6.2-12.0); Platelet Count 225 K/mm3 (150-450); RBC Distribution Width CV 13.3 % (11.6-14.6); RBC Distribution Width SD 43.4 fl (35.1-43.9); Red Blood Count 5.37 M/mm3 (4.6-6.2); White Blood Count 14.6 K/mm3 (4.4-11.0)
[2023-06-15 13:03] LABS: PTHIN 41.7 pg/mL (18.4-80.1)
[2023-06-15 13:06] LABS: Vitamin D,25 Hydroxy 42.6 ng/mL
[2023-06-15 13:07] LABS: Albumin, Serum 4.2 g/dL (3.2-5.0); BUN 42 mg/dL (7-18); BUN/Creat Ratio 30.7 RATIO (10-20); Calcium,Total 9.8 mg/dL (8.5-10.1); Chloride 104 mmol/L (98-107); Creatinine, Serum 1.37 mg/dL (0.70-1.30); EST Glomerular Filtration Rate 55 mL/min (>60); Est Glom Filt Rate - Afr Amer 67 mL/min (>60); Glucose 131 mg/dL (74-106); Magnesium 2.7 mg/dL (1.6-2.6); Phosphorus 3.5 mg/dL (2.5-4.9); Sodium Level 136 mmol/L (136-145)
[2023-06-15 13:41] LABS: Microalbumin:Creatinine Ratio 5.2 mg/g CRE (<30 mg/g CRE)
== END | disposition home or self-care (01) ==
PROVIDERS: PCP Internal Medicine; Referring Provider Internal Medicine Nephrology; Visit Provider Internal Medicine Nephrology
DX: E55.9 Vitamin D deficiency, unspecified (principal); N18.31 Chronic kidney disease, stage 3a
CPT/HCPCS: 36415; 80069; 82043; 82306; 82570; 83735; 83970; 85027

== ENCOUNTER → 2024-04-29 | Outpatient (CLI) | payer MEDICARE, SELFPAY ==
--- NOTE | 2024-04-29 13:16 | CT_ITS ---
CT RIGHT LOWER EXTREMITY WITH 3-D IMAGING CLINICAL INDICATION: PAIN IN RIGHT KNEE TECHNIQUE: Axial CT images of the right lower extremity (including right hip, right knee, and right ankle) was performed without IV contrast material. Coronal and sagittal reformats were provided. The protocol utilizes one or more of the following dose reduction techniques: automated exposure control, adjustment of mA and/or kV according to patient size, and/or use of iterative reconstruction technique. RADIATION DOSAGE (If Supplied By Facility): CTDIvol = ( 18.40 ) mGy, DLP = ( 1426.38 ) mGycm COMPARISON: Right knee radiographs dated 08/12/2013. FINDINGS: Bones: There is mild degenerative arthrosis of the right hip joint with subchondral cyst formation in the superolateral acetabulum. There is tricompartment degenerative arthrosis of the right knee, most severe in the medial femorotibial compartment where there is severe joint space narrowing, marginal osteophyte formation, and subchondral sclerosis. Normal right ankle. Osseous structures are intact without evidence of fracture or dislocation. No lytic or blastic osseous masses. Soft Tissues: There is a small knee joint effusion. There are 2 calcified loose bodies in the posterior femorotibial joint recess, measuring up to 1.0 cm in diameter. The deep soft tissue structures are unremarkable. The superficial soft tissues are unremarkable without evidence of edema, hematoma, or foreign body. CT/Extremity Lower without Contra IMPRESSION: Tricompartment degenerative arthrosis of the right knee, most severe in the medial femorotibial compartment. Small knee joint effusion. 2 calcified loose bodies in the posterior femorotibial joint recess, measuring up to 1.0 cm in diameter. Electronically Signed: Juan Warren MD at 14:10 EST ,
[2024-04-29 13:22] LABS: Absolute Lymphocyte Count 1.09 X10^3/uL (0.83-4.51); Absolute Neutrophil Count 4.7 X10^3/uL (2.0-7.7); Basophil# 0.04 X10^3/uL; Basophil% 0.6 % (0-1); Eosinophil# 0.09 X10^3/uL; Eosinophils% 1.3 % (0-5); Hematocrit 46.8 % (40-54); Hemoglobin 15.8 g/dL (13.0-16.5); Lymphocyte # 1.09 X10^3/ul (0.83-4.51); Mean Corp Hgb Conc 33.8 g/dL (32-36); Mean Corpuscular Hgb 29.5 pg (27.0-32.0); Mean Corpuscular Volume 87.5 fL (80-94); Mean Platelet Vol. 10.9 fl (6.2-12.0); Monocyte# 0.76 X10^3/uL; Monocyte% 11.2 % (0-10); NRBC Flagged by Analyzer 0 % (0-5); Neutrophil # 4.67 X10^3/uL (2.7-7.7); Neutrophil % 68.7 % (47-70); Platelet Count 240 K/mm3 (150-450); RBC Distribution Width CV 14.2 % (11.6-14.6); RBC Distribution Width SD 45.2 fl (35.1-43.9); Red Blood Count 5.35 M/mm3 (4.6-6.2); White Blood Count 6.8 K/mm3 (4.4-11.0)
[2024-04-29 13:49] LABS: Albumin, Serum 4.2 g/dL (3.2-5.0); Anion Gap 5 (5-15); BUN 22 mg/dL (7-18); BUN/Creat Ratio 18.3 RATIO (10-20); Calcium,Total 9.8 mg/dL (8.5-10.1); Chloride 103 mmol/L (98-107); EST Glomerular Filtration Rate 64 mL/min (>60); Est Glom Filt Rate - Afr Amer 77 mL/min (>60); Glucose 106 mg/dL (74-106); Potassium 3.9 mmol/L (3.5-5.1); Sodium Level 136 mmol/L (136-145)
== END | disposition home or self-care (01) ==
LOC: CT 12:49
PROVIDERS: PCP Internal Medicine; Referring Provider Specialist; Visit Provider Specialist
DX: Z01.818 Encounter for other preprocedural examination (principal); M17.11 Unilateral primary osteoarthritis, right knee; M21.161 Varus deformity, not elsewhere classified, right knee

== ENCOUNTER → 2024-06-10 | Outpatient (CLI) | payer MEDICARE, SELFPAY ==
--- NOTE | 2024-06-10 15:13 | VDLE_ITS ---
Reason For Study Reason For Study: RLE Pain RIGHT LEFT GSV is normal. FV is compressible, spontaneous, phasic, competent CFV is compressible, spontaneous, phasic, competent and demonstrates normal augmentation. and demonstrates normal augmentation. FV is compressible, spontaneous, phasic, competent and demonstrates normal augmentation. POP V is compressible, spontaneous, phasic, competent and demonstrates normal augmentation. T/P Trunk is compressible. PTV is compressible. RT PerV is compressible. Procedure This is a venous duplex using B-mode, color flow and spectral Doppler. Exam performed in department. The exam was diagnostic. A preliminary report was called and/or faxed to Ben Pinon / Nasima Mars. VL/Venous Duplex US, Unilateral Interpretation Summary Deep veins of the right lower extremity are patent and compressible segmentally . There is no evidence of right lower extremity deep vein thrombosis. Valvular competence appears intact within the p roximal deep venous system on the right . The right great saphenous vein appears patent and compressible segmentally. The left femoral vein is patent and compressible. Ordering Physician: Nasima Mars Referring Physician: Nasima Mars Performed By: Hussain Moreno RVT
== END | disposition home or self-care (01) ==
LOC: CVS 15:09
PROVIDERS: PCP Internal Medicine
DX: M79.661 Pain in right lower leg (principal); Z96.651 Presence of right artificial knee joint
CPT/HCPCS: 93971